=== PATIENT | female | born 1970 | race Two or more races ===

== ENCOUNTER 2016-07-15 21:31 | Inpatient (IN) | payer OTHER ==
--- NOTE | 2016-07-15 21:40 | EDPHY ---
H & P Stated Complaint: SOB and CP since 1700 - Personal History LMP (Females 10-55): Hysterectomy Current Tetanus/Diphtheria Vaccine: Unsure Current Tetanus Diphtheria and Acellular Pertussis (TDAP): Unsure - Medical/Surgical History Hx Asthma: Yes Hx Chronic Respiratory Disease: No Hx Diabetes: No Hx Cardiac Disease: No Hx Renal Disease: No Hx Cirrhosis: No Hx Alcoholism: No Hx HIV/AIDS: No Hx Splenectomy or Spleen Trauma: No Other PMH: C-SECT X3, BREAST CA 10/2013- DOUBLE MASTECTOMY/RECONSTRUCT, KIDNEY STONE WITH SURG - Social History Smoking Status: Never smoked Time Seen by Provider: 07/15/16 21:40 Constitutional: Initial Vital Signs Temperature (C) 36.8 C 07/15/16 21:33 Heart Rate 122 H 07/15/16 21:33 Respiratory Rate 26 H 07/15/16 21:33 Blood Pressure 191/92 H 07/15/16 21:33 O2 Sat (%) 92 07/15/16 21:33 O2 Delivery Mode Nasal Cannula O2 (L/minute) 2 Allergies/Adverse Reactions: hydrocodone bitartrate [From Vicodin] Allergy (Verified 07/15/16 21:37) Other-Enter Comments Sulfa (Sulfonamide Antibiotics) Allergy (Verified 07/15/16 21:37) Swelling/neck,face,throat Home Medications: Medication Instructions Recorded Albuterol [Proventil Inhaler HFA 2 puffs IH Q4 PRN 08/31/15 (*)] Fluticasone Nasal [Flonase Nasal 2 sprays NASAL HS PRN 08/31/15 Barto] Letrozole [Femara 2.5 mg (*)] 2.5 mg PO DAILY@2030 04/16/16 Acetaminophen [Tylenol 325mg (*)] 650 mg PO Q4HRS PRN #0 tab 07/17/16 guaiFENesin [Mucinex 600 MG (*)] 1,200 mg PO BID 7 Days 07/17/16 predniSONE 20 mg PO DAILY #14 tablet 07/17/16 Medical Decision Making ED Course/Re-evaluation: CHIEF COMPLAINT: Dyspnea HISTORY OF PRESENT ILLNESS: This patient is a 45 year old female with a history of metastatic breast cancer who was referred to the Emergency Department by her oncologist, Dr. Roe, for acute shortness of breath beginning at 1700 today. She also reports associated cough and diffuse anterior chest pain exacerbated when attempting to breath deeply. She denies fever or chills or additional infectious symptoms. REVIEW OF SYSTEMS: A 10 point review of systems was performed and is negative with the exception of the elements mentioned in the history of present illness. PHYSICAL EXAM: HR, BP, O2 Sat, RR. Temp noted General Appearance: Alert, well hydrated, appropriate, and non-toxic appearing. Head: Atraumatic without scalp tenderness or obvious injury Eyes: Pupils equal, round, reactive to light and accommodation, EOMI, no trauma , no injection. Ears: Clear bilaterally, no perforation, normal landmarks Nose: Atraumatic, no rhinorrhea, clear. Throat: There is no erythema or exudates, no lesions, normal tonsils, mucus membranes moist. Neck: Supple, 2+ carotid upstroke, nontender, no lymphadenopathy. Respiratory: No retractions, no distress, no wheezes, and no accessory muscle use. Lungs are clear to auscultation bilaterally. Cardiovascular: Regular rate and rhythm, no murmurs, rubs, or gallops. Bilateral carotid, radial, dorsalis pedis, and posterior tibial pulses intact. Good capillary refill all extremities. Gastrointestinal: Abdomen is soft, nontender, non-distended, no masses, no rebound, no guarding, no peritoneal signs. Musculoskeletal: Normal active ROM of all extremities, atraumatic. Neurological: Alert, appropriate, and interactive. The patient has normal DTRs and non-focal cranial nerves, motor, sensory, and cerebellar exam. Skin: No rashes, good turgor, no nodules on palpation. Past medical history: Metastatic breast cancer, in radiation therapy. Past surgical history: Hysterectomy. Social history: Single, lives in [place]. DIAGNOSTICS/PROCEDURES/CRITICAL CARE TIME: Study: CTA of the chest Indication: Dyspnea Results: CT angiogram of the chest was obtained. The results of the study are: The study was read by the radiologist, . I viewed the images myself on the PACS system. DIFFERENTIAL DIAGNOSIS: The differential diagnosis for the patient's shortness of breath and hypoxemia included but was not limited to pneumonia, myocardial infarction, acute mountain sickness, high altitude pulmonary edema, congestive heart failure, and pulmonary embolus. MEDICAL DECISION MAKING: This 45 y/o female with metastatic breast cancer presents with symptoms of possible radiation pneumonitis or pulmonary emboli. She complains of dyspnea and associated chest pain. On exam, she is tachycardic and has difficulty breathing deeply or speaking in full sentences. IV established. 500mL IV NS, 1mg IV Dilaudid, and 3mL IH DuoNeb administered. Will proceed with CT angiogram of the chest. (Justin Hardy) 1216: CT scan of the angiogram chest with IV contrast The results of the study are negative for pulmonary embolism, there is radiation pneumonitis seen. This also a left thyroid nodule. There is also a small pericardial effusion that is new since the last study. The study was read by Dr. Garcia I viewed the images myself on the PACS system. 0026: EKG interpretation by me on record in [facility] system. Impression time of EKG at 12:24 a.m., this is sinus tachycardia rate of 124. Do not appreciate ST elevation.. 1240: This patient was signed over to me at 11:00 p.m. shift change. Follow up the CT angiogram. I have been watching this patient closely she has persistent tachycardia in the 130s. Her CT angiogram does not show a pulmonary embolism most likely cause of pleuritic pain is radiation pneumonitis however she does have a very small pericardial effusion on CT scan with some fibrin is changes. This may be causing her pleurisy. Due to her persistent tachycardia and new small pericardial effusion and ongoing chest discomfort I have admitted her to the hospital service PCU bed for closer observation serial enzymes and an echocardiogram. I spoke with the hospitalist service Dr. Bean who agrees to admit this patient (Robin Pedraza) - Data Points Laboratory Results: Laboratory Results 07/16/16 06:40 07/16/16 06:40 Medications Given: Discontinued Medications Acetaminophen (Tylenol) 650 mg PO Q4HRS PRN PRN Reason: Pain, Mild/Fever, Can Take PO Stop: 01/12/17 02:47 Last Admin: 07/16/16 22:47 Dose: 650 mg Albuterol/Ipratropium (Duoneb) 3 ml IH EDNOW ONE Stop: 07/15/16 21:46 Last Admin: 07/15/16 23:18 Dose: 3 ml Albuterol/Ipratropium (Duoneb) 3 ml IH QID BRYANT Stop: 01/12/17 05:59 Last Admin: 07/17/16 10:58 Dose: 3 ml Docusate Sodium (Colace) 100 mg PO BID [facility] Stop: 01/12/17 12:29 Last Admin: 07/17/16 08:54 Dose: 100 mg Enoxaparin Sodium (Lovenox) 40 mg SC DAILY [facility] Stop: 01/12/17 08:59 Last Admin: 07/17/16 08:44 Dose: 40 mg Guaifenesin (Mucinex) 1,200 mg PO BID [facility] Stop: 01/12/17 02:59 Last Admin: 07/17/16 10:35 Dose: Not Given Hydromorphone HCl (Dilaudid) 1 mg IVP EDNOW ONE Stop: 07/15/16 21:47 Last Admin: 07/15/16 23:31 Dose: 1 mg Hydromorphone HCl (Dilaudid) 1 mg IVP EDNOW ONE Stop: 07/16/16 00:39 Last Admin: 07/16/16 00:57 Dose: 1 mg Sodium Chloride (Ns) 500 mls @ 0 mls/hr IV ONCE ONE PRN Reason: As Directed Stop: 07/15/16 21:46 Last Admin: 07/15/16 23:31 Dose: 500 mls Sodium Chloride (Ns) 500 mls @ 0 mls/hr IV EDNOW ONE PRN Reason: Wide Open Stop: 07/15/16 23:34 Last Admin: 07/15/16 23:34 Dose: 500 mls Sodium Chloride (Ns) 1,000 mls @ 0 mls/hr IV EDNOW ONE PRN Reason: Wide Open Stop: 07/16/16 00:31 Last Admin: 07/16/16 00:30 Dose: 1,000 mls Ketorolac Tromethamine (Toradol) 30 mg IVP EDNOW ONE Stop: 07/15/16 23:33 Last Admin: 07/15/16 23:34 Dose: 30 mg Letrozole (Femara) 2.5 mg PO DAILY@2029 [facility] Stop: 01/12/17 20:29 Last Admin: 07/16/16 20:19 Dose: 2.5 mg Ondansetron HCl (Zofran) 4 mg IVP Q4HRS PRN PRN Reason: Nausea/Vomiting, Can't Take PO Stop: 01/12/17 02:47 Last Admin: 07/16/16 10:47 Dose: 4 mg Oxycodone HCl (Oxycodone Ir) 5 - 10 mg PO Q3HRS PRN PRN Reason: Pain, Severe Able to Take PO Stop: 07/26/16 02:47 Last Admin: 07/16/16 15:15 Dose: 10 mg Prednisone (Prednisone) 60 mg PO DAILY [facility] Stop: 01/12/17 08:59 Last Admin: 07/17/16 08:54 Dose: 60 mg Departure - Departure Disposition: [facility] Inpatient Acute Clinical Impression: Tachycardia Chest pain Qualifiers: Chest pain type: chest pain on breathing Qualifier Code: (R07.1) Chest pain on breathing Condition: Fair
[2016-07-15] MEDS ORDERED: NS 500 ML IV ONE ×2 (21:45→23:33)
[2016-07-15] MEDS ORDERED: IPRATROPIUM/ALBUTEROL 3 ML DEYVIAL IH ONE (21:45)
[2016-07-15] MEDS ORDERED: HYDROmorphONE/DILAUDID 1 MG/ML SYR ONE (21:46)
[2016-07-15] MEDS ORDERED: HYDROmorphONE/DILAUDID 1 MG/ML SYR IVP ONE (21:46)
[2016-07-15] MEDS ORDERED: KETOROLAC 30 MG/1 ML SDV ONE (21:46)
[2016-07-15] MEDS ORDERED: IOPAMIDOL (ISOVUE 370) 100 ML BTL IV ONE (21:52)
[2016-07-15 22:42] LABS: % IMMATURE GRANULYOCYTES 0.6 % (0.0-1.1); ABSOLUTE IMMATURE GRANULOCYTES 0.07 10^3/uL (0.00-0.10); ADD DIFF? NO; ADD MORPH? NO; ADD SCAN? NO; ATYPICAL LYMPHOCYTE FLAG 0 (0-99); FRAGMENT RBC FLAG 0 (0-99); HEMATOCRIT 43.5 % (38.0-47.0); HEMOGLOBIN 14.7 g/dL (12.6-16.3); LEFT SHIFT FLG 0 (0-99); LIPEMIA HEMOLYSIS FLAG 90 (0-99); MEAN CELL HEMOGLOBIN 30.4 pg (27.9-34.1); MEAN CELL HEMOGLOBIN CONCENTR. 33.8 g/dL (32.4-36.7); MEAN CELL VOLUME 89.9 fL (81.5-99.8); MEAN PLATELET VOLUME 9.6 fL (8.7-11.7); PLATELET CLUMPS FLAG 20 (0-99); PLATELET COUNT 262 10^3/uL (150-400); RED BLOOD CELL COUNT 4.84 10^6/uL (4.18-5.33); RED CELL DISTRIBUTION WIDTH 14.8 % (11.5-15.2)
[2016-07-15 22:54] LABS: ANION GAP 12 mEq/L (8-16); CALCIUM 9.4 mg/dL (8.5-10.4); CARBON DIOXIDE 22 mEq/l (22-31); CHLORIDE 112 mEq/L (97-110); CREATININE 0.7 mg/dL (0.6-1.0); GLOMERULAR FILTRATION RATE > 60; GLUCOSE 155 mg/dL (70-100); SODIUM 146 mEq/L (134-144)
[2016-07-15] MEDS ORDERED: KETOROLAC 30 MG/1 ML SDV IVP ONE (23:32)
[2016-07-16] MEDS ORDERED: NS 1,000 ML IV ONE (00:30)
[2016-07-16] MEDS ORDERED: HYDROmorphONE/DILAUDID 1 MG/ML SYR IVP ONE (00:38)
--- NOTE | 2016-07-16 00:50 | CPEKG ---
Heart Rate: 124 RR Interval: 484 P-R Interval: 132 QRSD Interval: 80 QT Interval: 324 QTC Interval: 466 P Milton: 41 QRS Milton: 28 T Wave Milton: 61 EKG Severity - BORDERLINE ECG - EKG Impression: SINUS TACHYCARDIA EKG Impression: BORDERLINE R WAVE PROGRESSION, ANTERIOR LEADS Electronically Signed By: Michael Villarreal 17-Jul-2016 22:20:32
[2016-07-16] MEDS ORDERED: LORazepam 2 MG/ML INJ IVP PRN (02:48)
[2016-07-16] MEDS ORDERED: PROMETHAZINE HCL 25 MG/ML INJ IVP PRN (02:48)
[2016-07-16] MEDS ORDERED: HYDROmorphONE/DILAUDID 1 MG/ML SYR IVP PRN (02:48)
[2016-07-16] MEDS ORDERED: ONDANSETRON DISINTEGRATING 4 MG TAB PO PRN (02:48)
[2016-07-16] MEDS ORDERED: ALBUTEROL 3 ML DEYVIAL IH PRN (02:48)
[2016-07-16] MEDS: guaiFENesin 600 MG TAB.ER PO SCH ×3 (03:26→20:19)
[2016-07-16] MEDS: oxyCODONE IR 5 MG TAB PO PRN ×2 (03:26→15:15)
[2016-07-16] MEDS: ACETAMINOPHEN 325 MG TAB PO PRN ×2 (04:19→22:47)
[2016-07-16] MEDS: IPRATROPIUM/ALBUTEROL 3 ML DEYVIAL IH SCH ×4 (06:16→19:27)
[2016-07-16] MEDS: ONDANSETRON 4 MG/2 ML VIAL IVP PRN ×2 (06:45→10:47)
[2016-07-16 06:52] LABS: % IMMATURE GRANULYOCYTES 0.6 % (0.0-1.1); ABSOLUTE IMMATURE GRANULOCYTES 0.08 10^3/uL (0.00-0.10); ADD DIFF? NO; ADD MORPH? NO; ADD SCAN? NO; ATYPICAL LYMPHOCYTE FLAG 10 (0-99); FRAGMENT RBC FLAG 0 (0-99); HEMOGLOBIN 12.6 g/dL (12.6-16.3); LEFT SHIFT FLG 10 (0-99); LIPEMIA HEMOLYSIS FLAG 90 (0-99); MEAN CELL HEMOGLOBIN 30.6 pg (27.9-34.1); MEAN CELL HEMOGLOBIN CONCENTR. 34.1 g/dL (32.4-36.7); MEAN CELL VOLUME 89.8 fL (81.5-99.8); MEAN PLATELET VOLUME 9.7 fL (8.7-11.7); PLATELET CLUMPS FLAG 0 (0-99); PLATELET COUNT 255 10^3/uL (150-400); RED BLOOD CELL COUNT 4.12 10^6/uL (4.18-5.33)
[2016-07-16 07:27] LABS: ANION GAP 13 mEq/L (8-16); CARBON DIOXIDE 20 mEq/l (22-31); CHLORIDE 111 mEq/L (97-110); CREATININE 0.6 mg/dL (0.6-1.0); GLOMERULAR FILTRATION RATE > 60; GLUCOSE 113 mg/dL (70-100); SODIUM 144 mEq/L (134-144)
[2016-07-16 07:39] LABS: TROPONIN I < 0.012 ng/mL (0-0.034)
--- NOTE | 2016-07-16 07:49 | GHP ---
[f rep st] HISTORY AND PHYSICAL DATE OF ADMISSION: 07/16/2016 CHIEF COMPLAINT: Chest pain and shortness of breath. HISTORY: This is a full code 45-year-old female with a past medical history of breast cancer status post double mastectomy, currently undergoing chest radiation who presents with chest pain and shortne ss of breath that has been worsening over the course of the day today. She does have a nonproductive cough as well. She denies fevers or chills. She notes that the pain is worse with deep inspiration . She has not had similar symptoms in the past. She was warned by her oncologist that she may have these type symptoms develop possibly related to radiation pneumonitis. She does not have swelling or pain in her lower extremities. She has never had similar issues in the past. PAST MEDICAL HISTORY: 1. Includes breast cancer. 2. Multiple bouts of nephrolithiasis. PAST SURGICAL HISTORY: 1. Includes bilateral mastectomy. 2. Hysterectomy. 3. x3. 4. Two kidney stone surgeries. FAMILY HISTORY: She has 2 aunts with breast cancer. Father with heart disease. Multiple family mem bers with early onset heart disease including a grandmother who at age 50 of an MN. Mother has had DVTs. SOCIAL HISTORY: The patient works at [employer] in [place] [employer]. She has a remote and brief tobacco use history. She denies alcohol. She does use medical marijuana occasionally. REVIEW OF SYSTEMS: A 10-point review of systems obtained and negative, except as per HPI. MEDICATIONS: Include: 1. Letrozole. 2. . 3. Flonase. 4. Azithromycin. 5. Albuterol. ALLERGIES: Include sulfa. PHYSICAL EXAM: VITAL SIGNS: BP 131/88, heart rate 116, respiratory rate 20, O2 sat is 98% on 2 L. Temperature is 36.8. GENERAL APPEARANCE: Well-developed/well-nourished female. She is awake, alert . She is in no acute distress. EYES: Anicteric. HENT: Oropharynx clear. CARDIOVASCULAR: Mildly tachy, regular, no MRG. PULMONARY: Lungs are clear, she does have some bronchial breath sounds pre sent and a nonproductive cough. Normal work of breathing. ABDOMEN: Soft, nontender. Positive rama l sounds. EXTREMITIES: No clubbing, cyanosis, or edema. SKIN: Warm, dry, well perfused. NEURO/PS YCH: Oriented and appropriate, pleasant. CLINICAL DATA: Labs reviewed. Significant for a white blood cell count of 13.3, hematocrit of 37, p latelets of 255. Chemistry is remarkable for a glucose of 155. Troponin is negative. EKG personall y reviewed and interpreted, shows sinus tachycardia without acute ischemic changes. Chest and thorax CT angiogram personally reviewed interpreted showing no PE. There was evidence of r adiation pneumonitis as well as pericardial effusion. ASSESSMENT AND PLAN: This is a 45-year-old female, past medical history of breast cancer currently u ndergoing chest radiation, presenting with shortness of breath and chest pain. 1. Shortness of breath/chest pain. Suspect that this is related to radiation pneumonitis, however, she does have also an associated small pericardial effusion with fibrinous changes and for that reaso n echocardiogram has been ordered for this morning. Serial troponins and telemetry monitoring overni ght. Her symptoms do seem to be improving at this time. Will start prednisone and continue bronchod ilators. 2. Breast cancer. As per above, currently undergoing radiation therapy. We will continue her usual home medications. 3. Hyperglycemia. Suspect that this is a stress response but will repeat BMP in the morning and if still elevated, obtain hemoglobin A1c. 4. Tachycardia. This is improved post fluid resuscitation. Suspect it was related to volume deplet ion. Again, will continue to monitor on telemetry. 5. Disposition. Observation status. Suspect she will need less than 48 hours stay for evaluation a nd management of above. 6. Patient is new to my care. Old records reviewed and summarized as per HPI and past medical histo ry. Care plan reviewed with ER physician, and further history obtained from patient's daughter desmond vázquez at bedside. /[id number]/MODL
--- NOTE | 2016-07-16 08:59 | CT ---
CT Angiogram of the Chest Clinical Indications: Chest pain. Technique: 1.25-mm thin axial images are performed from lung apex through base during intravenous con trast injection of 90 mL of Isovue-370. Coronal and parasagittal reformatted images are reviewed on [employer] workstation. Dose reduction techniques were utilized. Comparison: None. Findings CT angiogram of the chest: There is no evidence for acute or chronic pulmonary embolic disease. Centr al pulmonary vasculature demonstrates normal contrast enhancement. No masses. CT scan chest: Postradiation pneumonitis is seen with central bronchiectasis. There is a rind of sma ll pericardial effusion 1 cm in depth circumferentially that is new. Heart size is otherwise normal. There is significant fatty replacement of the liver, unchanged. Implants are unchanged. Bones and sof t tissues are stable. A large left thyroid nodule measures 2.7 x 3.4 cm and was previously not imaged. Impression: 1. No pulmonary embolism. 2. Postradiation pneumonitis, known. 3. New circumferential pericardial effusion, largest measuring 1 cm, unclear significance. 4. Fatty replacement of the liver, unchanged. 5. Dominant solitary left 2.7 x 3.4 cm thyroid nodule, previously not imaged. Findings were discussed with Dr. Robin Munoz.
[2016-07-16] MEDS: predniSONE 20 MG TAB PO SCH (10:13)
[2016-07-16] MEDS: ENOXAPARIN 40 MG/0.4 ML SYR SC SCH (10:14)
--- NOTE | 2016-07-16 11:38 | ECHO ---
[id number] + + [address] : : [place] [address] : : [phone] + Adult Echocardiographic Report + -----+ :Name: BERTA AQUINO LStudy Date: 07/16/2016 08:17 AM : : Hospital Admission Number: [id number] Location : 205: :: 1970 Gender: Female Height: 57 in : :Age: 45 yrs Race: [facility] Weight: 207 lb : :Reason For Study: Pericardial effusion (by CT) : : BSA: 1.8 meters2 : :History: Breast CA/implants : + -----+ MMode/2D Measurements & Calculations IVSd: 1.5 cm LVIDd: 3.9 cm FS: 37.5 % Ao root diam: 3.0 cm LVPWd: 1.2 cm LVIDs: 2.4 cm EDV(Teich): 65.0 ml ESV(Teich): 20.7 ml EF(Teich): 68.2 % Normal Measurement Values: + + :LVIDd (3.5-5.7cm) IVSd (0.6-1.1cm) LVPWd (0.6-1.1cm) Aortic Root (2.0-3.7cm)Left Atrium (1.5-4.0cm): :LV Vol(d) (76-115ml) LV Vol(s) (29-48ml) Ejec Fraction (50-65%)PV Marlon (0.6- 1.2m/s) TV Marlon (0.4-1.0m/s) : :MV E Marlon (0.8-1.0m/s)MV A Marlon (0.3-1.0m/s)LVOT Marlon (0.7-1.2m/s) Asc Ao Marlon ( 0.9-1.8m/s) : + + Doppler Measurements & Calculations MV E max marlon: 86.9 cm/sec Ao V2 max: 149.3 cm/sec MV A max marlon: 89.8 cm/sec Ao max P.9 mmHg MV E/A: 0.97 Left Ventricle The left ventricle is normal in size. There is mild to moderate concentric left ventricular hypertrophy. The left ventricle is hyperdynamic. Ejection Fraction = 70-75%. The left ventricular wall motion is normal. Right Ventricle The right ventricle is normal size. Atria The left atrial size is normal. Right atrial size is normal. Mitral Valve The mitral valve is normal. Tricuspid Valve Normal tricuspid valve. Aortic Valve The aortic valve opens well. The aortic valve is trileaflet. Mild aortic regurgitation. Pulmonic Valve The pulmonic valve is not well visualized. trace to mild pulmonic valvular regurgitation. Great Vessels The aortic root is normal size. Pericardium/Pleural Trivial anterior pericardial effusion. Conclusion A complete two-dimensional transthoracic echocardiogram was performed (2D, M-mode, Doppler and color flow Doppler). Limited views for visualization with implants. (1) Left ventricular systolic ejection fraction was normal (70-75%) - normal wall motion (2) Mild to moderate concentric left ventricular hypertrophy (3) Diastolic function was not clearly assessed in this study (4) Normal right ventricular size and function (5) Normal atrial dimensions (6) Grossly normal mitral valve (7) Trileaflet aortic valve with mild insufficiency, but no sclerosis (8) Grossly normal tricuspid valve (9) Poor visualization of the pulmonic valve with trace/mild insufficiency (10) No comparison echocardiograms Final Reading Physician: Alvin Pride signed on 07/16/2016 11:36 AM Ordering Physician: Stephanie Kraft Performed By: Yancy Garcia, TYRELL
--- NOTE | 2016-07-16 13:06 | HOSPPROG ---
Hospitalist Progress Note Assessment/Plan: # acute chest pain- suspect secondary to radiation pneumonitis CTA of the chest (personally reviewed and interpreted) no pulmonary embolism or infiltrate radiation pneumonitis troponin and EKG negative- oxygen saturations 98% on 2 L - transthoracic echo ordered - continue treatment for radiation pneumonitis as symptoms have improved # acute nausea and headache- symptoms seem severe - ordered non con CT of head is patient additionally with gait instability - continue Zofran # sinus tachycardia- heart rates in the 120 on presentation- responded nicely to fluids overnight- creatinine 0.6 - continue IV fluid maintenance as patient has nausea - continue telemetry # breast cancer- actively receiving treatment # prophylaxis Lovenox # diet regular if tolerated # disposition greater than 2 midnights as the patient still with severe nausea headache and gait instability requiring diagnostic workup and treatment I have discussed the case with the RN we will image the patient's headache and nausea markedly more severe Subjective: nausea severe terrible headache Objective: Vital Signs Temp Pulse Resp BP Pulse Ox 36.9 C 97 20 120/79 98 07/16/16 11:52 07/16/16 11:52 07/16/16 11:52 07/16/16 11:52 07/16/16 11:52 Laboratory Results 07/16/16 06:40 07/16/16 06:40 07/15/16 07/16/16 07/17/16 05:59 05:59 05:59 Intake Total 2250 240 Balance 2250 240 - Physical Exam Constitutional: appears nourished Eyes: anicteric sclera Ears, Nose, Mouth, Throat: dry mucous membranes Cardiovascular: regular rate and rhythym Respiratory: no respiratory distress, no rales or rhonchi Gastrointestinal: normoactive bowel sounds, soft, non-tender abdomen Genitourinary: no bladder fullness Skin: warm, normal color Musculoskeletal: No asymmetric calves Neurologic: AAOx3 Psychiatric: interacting appropriately Lymph, Heme, Immunologic: no cervical LAD ICD10 Worksheet Patient Problems: Problems Problem Status Diagnosed Chest pain Acute Left nephrolithiasis Acute Tachycardia Acute
[2016-07-16] MEDS: DOCUSATE SODIUM 100 MG CAP PO SCH ×2 (13:19→20:18)
--- NOTE | 2016-07-16 15:07 | CT ---
CT Head Without Contrast History: Headache with nausea and gait instability, history of breast cancer Comparison: None. Technique: Noncontrast images through the head. Soft tissue and bone window evaluation is performed. Dose reduction techniques were utilized. Findings: There is no evidence for hemorrhage, mass lesion, acute infarction, intracranial edema, hyd rocephalus or abnormal intracranial parenchymal calcification. There is benign midline dural calcific ation. No subarachnoid blood is identified. There is no midline shift. The ambient cistern is patent. Bone window evaluation reveals normally aerated paranasal and mastoid sinuses. No lytic or sclerotic bone lesions are identified to suggest bony metastatic disease. There is no evidence of pneumocephal us. Impression: Head CT within normal limits. General information for patients regarding this examination can be found at [email or web address]. If you have questions or comments about this report, please contact me at [phone] (hospital) or [phone] (cell).
[2016-07-16] MEDS ORDERED: FLUTICASONE NASAL 120 SPRAYS/16 GM MDI NS PRN (16:10)
[2016-07-16] MEDS ORDERED: ALBUTEROL 60 PUFFS/8 GM MDI IH PRN (16:10)
[2016-07-16] MEDS ORDERED: LETROZOLE 2.5 MG TAB PO SCH (20:30)
--- NOTE | 2016-07-16 20:54 | GCON ---
[f rep st] CONSULTATION MEDICAL ONCOLOGY CONSULTATION DATE OF CONSULTATION: 07/16/2016 REASON FOR CONSULTATION: Chest pain and shortness of breath. HISTORY OF PRESENT ILLNESS: The patient is a very pleasant 45-year-old female who was admitted last evening with symptoms of pleuritic chest pain and dyspnea. Her oncology history dates back to September 2013 when she presented with a stage IIA right breast cancer. The tumor was ER/OR positive and HER2- negative. She underwent bilateral mastectomies followed by 4 cycles of adjuvant Taxotere and Cytoxan. She did not receive post-mastectomy radiation therapy and then was started on tamoxifen. In November of 2015, she noted a lump in the lateral aspect of the right reconstructive breast. Biopsy showed a grade 2 ER/OR positive, HER2-negative invasive ductal carcinoma with a high Ki- 67. PET scan at that time showed a large tumor in the sternum with a multinodular goiter and bilateral lower cervical nodes. She was started on Lupron and letrozole in September of 2015 and underwent a course of palliative radiation therapy in February to the sternum. She had a significant response in the sternum with decrease in size of the sternal mass, but the axillary nodes were the same size. She underwent removal of the axillary mass in May and just started on radiation therapy to the right axilla about one week ago. She was feeling in her usual state of health until yesterday afternoon after coming out of the Radiation Department. She noted that she had pain when she was breathing. She felt short of breath. She denies any fever. She denies sore throat. She developed progressive symptoms of dyspnea with pleuritic pain and presented to the emergency room last evening. A CT angiogram did not show any evidence of pulmonary emboli, but there was evidence of postradiation pneumonitis centrally. There was a small pericardial effusion. No other abnormalities were identified other than the thyroid nodule. The cardiac evaluation has been negative with negative troponins and unremarkable EKG. An echocardiogram is pending. The patient was treated for probable radiation pneumonitis and given NSAIDs along with prednisone. She feels much less pain this morning. However, was nauseated and had emesis throughout the night, along with a headache. She thinks these may be related to the pain medications that she got last night. Overall, she does feel improved. PAST MEDICAL HISTORY: Breast cancer as per HPI. PAST SURGICAL HISTORY: Bilateral mastectomy. 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 She is accompanied today with her daughter. She does not smoke cigarettes. REVIEW OF SYSTEMS: A 10-point review of systems is negative, other than mentioned in the HPI. PHYSICAL EXAMINATION: GENERAL: She is a young female lying comfortably in bed with oxygen on. VITAL SIGNS: Blood pressure 120/79, heart rate 97, O2 saturation 98% on 2 L, she is afebrile. HEENT: Pupils are equal. Sclerae are anicteric. Oropharynx is clear without evidence of thrush. LUNGS: Clear to auscultation, but she does describe some discomfort when she takes a deep breath in across her upper chest. HEART: Regular rate. I do not hear a rub. ABDOMEN: Soft and nontender. LABORATORY DATA: White blood cell count 13.4, hematocrit 37. Metabolic panel is unremarkable. IMPRESSION: This is a 45-year-old female with metastatic breast cancer with disease primarily in bone and lymph nodes. She completed a course of radiation to the sternum in February and the radiographic findings on CT scan correlate with what I presume are her sternal radiation murray. She is currently five days into right axillary radiation. She is more comfortable this morning after treatment with steroids and NSAIDs. This may represent radiation pneumonitis occurring in a delayed fashion, but unclear if there was a trigger. She has respond clinically. The nausea and headache are likely due to the pain medicines and the head CT was negative. PLAN: I have asked the patient to contact the Radiation Department first thing Monday morning. I will notify Dr. Lamas and we can get his opinion on her symptomatology as well. Will continue to follow along with you. /[id number]/MODL MTDD
[2016-07-17] MEDS: IPRATROPIUM/ALBUTEROL 3 ML DEYVIAL IH SCH ×2 (06:41→10:58)
[2016-07-17 08:23] VITALS: BP 135/76; PULSE 86; TEMP 97.5; O2SAT 95
[2016-07-17] MEDS: ENOXAPARIN 40 MG/0.4 ML SYR SC SCH (08:44)
[2016-07-17] MEDS: predniSONE 20 MG TAB PO SCH (08:54)
[2016-07-17] MEDS: DOCUSATE SODIUM 100 MG CAP PO SCH (08:54)
[2016-07-17] MEDS: guaiFENesin 600 MG TAB.ER PO SCH (10:35)
[2016-07-17 11:03] VITALS: RESP 16
--- NOTE | 2016-07-17 11:42 | GDS ---
[f rep st] DISCHARGE SUMMARY NEW AND ACUTE DIAGNOSES ON THIS ADMISSION: 1. Acute radiation pneumonitis with chest pain, chest pain now resolved. 2. Chest pain secondary to #1, now controlled with antiinflammatories, prednisone, and Tylenol. 3. Dehydration, resolved. 4. Metastatic breast carcinoma, currently under treatment. CONSULTATION: Oncology. PROCEDURES: CTA of the chest and thorax showing no evidence of a pulmonary embolus, but evidence of pneumonitis. Head CT was normal. HOSPITAL COURSE: A 45-year-old female, presented with a complaint of chest pain. She is currently under undergoing radiation therapy for metastatic breast carcinoma. Evaluation revealed findings of acute pneumonitis, presumed secondary to radiation. No evidence of pulmonary embolus was found. She was started on antiinflammatories and prednisone, and had good resolution of her pain. Mild dehydration was present on admission and was treated with IV fluids. The dehydration was secondary to nausea and vomiting. She also had a complaint of a headache. The headache, nausea, and vomiting all resolved at the time of discharge, and she was feeling well, taking a normal diet. DISCHARGE MEDICATIONS: Prednisone 20 mg per day, Mucinex 1200 mg p.o. b.i.d., Proventil inhaler 2 puffs q.4 hours p.r.n. shortness of breath, Tylenol p.r.n. for pain, Femara 2.5 mg daily, Flonase nasal spray 2 inhalations in each nose b.i.d. PLAN: She will follow up with Dr. White within the next 7 days. She is also to see Radiation Oncology, Dr. Francisco Lamas, in 1-2 days. /[id number]/MODL MTDD
== END 2016-07-17 11:38 | disposition home or self-care (01) | DRG 206 ==
LOC: INTOOBSV 07-16 00:39 → F2W 07-16 01:31 → OBSVTOIN 07-16 13:10
PROVIDERS: ADMIT Internal Medicine; ATTEND Internal Medicine Pulmonary Disease
DX: J70.0 Acute pulmonary manifestations due to radiation (principal); Y84.2 Radiological procedure and radiotherapy as the cause of abnormal reaction of the patient, or of later complication, without mention of misadventure at the time of the procedure; E86.0 Dehydration; R11.2 Nausea with vomiting, unspecified; R51 Headache; C77.3 Secondary and unspecified malignant neoplasm of axilla and upper limb lymph nodes; C79.51 Secondary malignant neoplasm of bone; Z85.3 Personal history of malignant neoplasm of breast; Z90.13 Acquired absence of bilateral breasts and nipples
CPT/HCPCS: 96374; J1170; J1650; J1885; J2405; Q9967

== ENCOUNTER → 2016-09-06 | Outpatient (CLI) | payer OTHER | LOC: FIMAGING 07:55 | PROVIDERS: ATTEND Internal Medicine Hematology & Oncology | DX: Z51.81 Encounter for therapeutic drug level monitoring (principal); R93.8 Abnormal findings on diagnostic imaging of other specified body structures; C50.919 Malignant neoplasm of unspecified site of unspecified female breast | CPT/HCPCS: A9503 ==

== ENCOUNTER → 2016-12-22 | Outpatient (CLI) | payer OTHER | LOC: FIMAGING 09:17 | PROVIDERS: ATTEND Internal Medicine Hematology & Oncology | DX: C50.919 Malignant neoplasm of unspecified site of unspecified female breast (principal); R10.9 Unspecified abdominal pain; N13.30 Unspecified hydronephrosis; C79.51 Secondary malignant neoplasm of bone; Z87.442 Personal history of urinary calculi | CPT/HCPCS: 78306; A9503 ==

== ENCOUNTER → 2017-01-25 | Outpatient (CLI) | payer OTHER ==
[~2017-01-25] MED LIST: IOPAMIDOL (ISOVUE-M 300) 15 ML VIAL ONE
== END ==
LOC: FIMAGING 08:26
PROVIDERS: ATTEND Internal Medicine Hematology & Oncology
PROC: CP1Z1ZZ Planar Nuclear Medicine Imaging of Musculoskeletal System, All using Technetium 99m (Tc-99m) (ICD-10-PCS; principal; 2017-01-25)
DX: C79.51 Secondary malignant neoplasm of bone (principal); C50.919 Malignant neoplasm of unspecified site of unspecified female breast; N13.2 Hydronephrosis with renal and ureteral calculous obstruction
CPT/HCPCS: 78306; A9503; Q9967

== ENCOUNTER 2017-01-27 09:58 | Day surgery (SDC) | payer OTHER ==
--- NOTE | 2017-01-26 11:28 | GHP ---
[f rep st] PREOP HISTORY AND PHYSICAL DATE OF ADMISSION: 01/27/2017 PREPROCEDURE DIAGNOSIS: Metastatic breast cancer. HISTORY OF PRESENT ILLNESS: Shannon is a 46-year-old woman with metastatic breast cancer who presented to the office to discuss port placement. Her oncologist is Dr. Tomas White. Her most recent CT in December 2016 showed progressive disease and a number of mediastinal lymph nodes as well as a new james er lesion. She is scheduled to begin chemotherapy as soon as the port is placed. She is having a k idney stone removed by Dr. Harris on 01/27/2017, and it has been discussed that the case can be perfo rmed [id number]. PAST MEDICAL HISTORY: GERD, kidney stones, breast cancer, obesity. PAST SURGICAL HISTORY: Bilateral mastectomies with reconstructions. section. Kidney stone removal. ALLERGIES: Sulfa. FAMILY HISTORY: Significant for Alzheimer disease, coronary artery disease, stroke, hyperlipidemia and hypertension. SOCIAL HISTORY: She has a daughter. She denies tobacco, alcohol, recreational drug use. REVIEW OF SYSTEMS: A 10-point review of systems negative aside from HPI. PHYSICAL EXAMINATION: GENERAL: Well-developed, well-nourished, woman in no acute distress. HEENT: Normocephalic, atraumatic. No hearing deficits. Pupils equal and round. No scleral icterus. Mu cous membranes moist. NECK: Trachea midline. RESPIRATORY: Clear to auscultation bilaterally. No increased work of breathing. CARDIOVASCULAR: Regular rate and rhythm. No peripheral edema. SKIN : Warm and dry. MUSCULOSKELETAL: Normal gait. Normal nails. PSYCH: Mood and affect normal. NE URO: Grossly intact. IMPRESSION AND PLAN: Shannon Watsno is a 46-year-old woman with metastatic breast cancer. She will r equire a port for chemotherapy. We discussed benefits of port including easier access for IV. Disc ussed risks of surgery including, but not limited to, heart attack, stroke, blood clots or . W e discussed risk of infection, bleeding, or pneumothorax. She understands that if the port becomes infected, it will need to be removed. He will leave the port accessed following surgery for her sub sequent chemotherapy. We will place a left IJ PowerPort regular profile. She had her questions ans wered to her satisfaction. She was additionally seen by Dr. Dilia Martinez who agrees with the above i mpression and plan. /[id number]/MODL
[2017-01-27] MEDS ORDERED: ceFAZolin 2 GM/DEXTROSE 100 ML IV ONE (10:21)
[2017-01-27] MEDS ORDERED: LIDOCAINE 1% 2 ML INJ ID PRN (10:40)
[2017-01-27] MEDS ORDERED: LR 1,000 ML IV ONE (10:40)
[2017-01-27] MEDS ORDERED: BUPIVACAINE 0.5% 30 ML SDV ONE (11:44)
--- NOTE | 2017-01-27 11:53 | PDANEPAE ---
ANE History of Present Illness Metastatic breast ca and kidney stone ANE Past Medical History - Cardiovascular History Hx Hypertension: No Hx Arrhythmias: No Hx Chest Pain: No Hx Coronary Artery / Peripheral Vascular Disease: No Hx CHF / Valvular Disease: No Hx Palpitations: No - Pulmonary History Hx COPD: No Hx Asthma/Reactive Airway Disease: Yes Hx Recent Upper Respiratory Infection: No Hx Oxygen in Use at Home: No Hx Sleep Apnea: No Sleep Apnea Screening Result - Last Documented: Negative Pulmonary History Comment: ASTHMA - INHALER - Neurologic History Hx Cerebrovascular Accident: No Hx Seizures: No Hx Dementia: No - Endocrine History Hx Diabetes: No - Renal History Hx Renal Disorders: Yes Renal History Comment: KIDNEY STONES - Liver History Hx Hepatic Disorders: No - Neurological & Psychiatric Hx Hx Neurological and Psychiatric Disorders: No - Cancer History Hx Cancer: Yes Cancer History Comment: BREAST CA DX 2013, CHEMO. w/ Mets to Lungs - Congenital Disorder History Hx Congenital Disorders: No - GI History Hx Gastrointestinal Disorders: No - Other Health History Other Health History: ECZEMA - Chronic Pain History Chronic Pain: No - Surgical History Prior Surgeries: R axilla- excision mass - 2015;. CSECTION X 3. HYSTERECTOMY. LITHROTRIPSY. B MASTECTOMY 2013. BREAST RECONST SURG/IMPLANTS 2015. STONE REMOVAL 08/2015 & 10/2015 ANE Review of Systems - Exercise capacity METS (RN): 4 METS ANE Patient History - Allergies Allergies/Adverse Reactions: hydrocodone bitartrate [From Vicodin] Allergy (Verified 01/24/17 15:35) Other-Enter Comments Sulfa (Sulfonamide Antibiotics) Allergy (Verified 01/24/17 15:35) Swelling/neck,face,throat - Home Medications Home medications: home medication list seen and reviewed Home Medications: Albuterol [Proventil Inhaler HFA (*)] 2 puffs IH Q4 PRN 08/31/15 [Last Taken 16:00] Fluticasone Nasal [Flonase Nasal [place]] 2 sprays NASAL HS PRN 08/31/15 [Last Taken 01/26/17] Letrozole [Femara 2.5 mg (*)] 2.5 mg PO DAILY@2030 04/16/16 [Last Taken 12/28/16 ] - NPO status NPO Since - Liquids (Date): 01/27/17 NPO Since - Liquids (Time): 03:00 NPO Since - Solids (Date): 01/26/17 NPO Since - Solids (Time): 20:00 - Smoking Hx Smoking Status: Never smoked - Family Anes Hx Family Hx Anesthesia Complications: NEG ANE Labs/Vital Signs - Vital Signs Heart Rate: 63 Respiratory Rate: 17 O2 Sat (%): 93 Height: 152.4 cm Weight: 95.254 kg ANE Physical Exam - Airway Neck exam: FROM Mallampati Score: Class 3 Mouth exam: normal dental/mouth exam - Pulmonary Pulmonary: no respiratory distress - Cardiovascular Cardiovascular: regular rate and rhythym - ASA Status ASA Status: II ANE Anesthesia Plan Anesthesia Plan: GA w LMA
[2017-01-27] MEDS ORDERED: MIDAZOLAM 2 MG/2 ML VIAL IVP ONE (11:57)
[2017-01-27] MEDS ORDERED: PROPOFOL 200 MG/20 ML VIAL ONE ×2 (12:08→13:04)
[2017-01-27] MEDS ORDERED: fentaNYL 100 MCG/2 ML INJ ONE ×4 (12:08→16:02)
[2017-01-27] MEDS ORDERED: LIDOCAINE 2% 5 ML SDV ONE (12:08)
[2017-01-27] MEDS ORDERED: DEXAMETHASONE 4 MG/ML VIAL ONE (12:08)
--- NOTE | 2017-01-27 12:17 | PDHPUP ---
History & Physical Update H&P update statement: This history and physical update is based on an assessment of the patient which was completed after admission or registration (within 24 hours), but prior to the surgery/procedure. H&P update: H&P reviewed & patient examined, no change in patient's condition since H&P completed
[2017-01-27] MEDS ORDERED: ONDANSETRON 4 MG/2 ML VIAL ONE (12:24)
[2017-01-27] MEDS ORDERED: ONDANSETRON 4 MG/2 ML VIAL IVP PRN (14:24)
[2017-01-27] MEDS ORDERED: PROMETHAZINE HCL 25 MG/ML INJ IVP PRN (14:24)
[2017-01-27] MEDS ORDERED: NALOXONE HCL 0.4 MG/ML INJ IVP PRN (14:24)
--- NOTE | 2017-01-27 14:41 | POSTOPPROG ---
Post Op Note Date of Operation: 01/27/17 Surgeon: Alonzo Harris Anesthesia: LMA Pre-op Diagnosis: Right ureteral calculus Procedure: Right ureteroscopy, laser lithotripsy Findings: Upper ureteral calculus Inf/Abcess present in the surg proc area at time of surgery?: No Complications: none
[2017-01-27 15:01] VITALS: TEMP 96.8
[2017-01-27] MEDS: fentaNYL 100 MCG/2 ML INJ IVP PRN ×2 (15:11→16:02)
--- NOTE | 2017-01-27 16:02 | POSTANESTH ---
Post Anesthetic Evaluation Cardiovascular Status: Normal, Stable Respiratory Status: Normal, Stable Level of Consciousness/Mental Status: Can Participate in Eval Pain Control: Adequate, Prn Tx Ordered Nausea/Vomiting Control: Adequate, Prn Tx Ordered Complications Possibly Related to Anesthesia: None Noted
[2017-01-27 16:06] VITALS: BP 149/101; PULSE 86; RESP 18; O2SAT 90
--- NOTE | 2017-01-27 16:08 | POSTOPPROG ---
Post Op Note Date of Operation: 01/27/17 Surgeon: Dilia Martinez Anesthesiologist: janay Anesthesia: GET(General Endotracheal) Pre-op Diagnosis: metastatic breast ca Post-op Diagnosis: same Indication: 46 yo with breast cancer Procedure: R US guided IJ Findings: tip in SVC Inf/Abcess present in the surg proc area at time of surgery?: No Specimen(s): none
--- NOTE | 2017-01-27 19:32 | GOP ---
[f rep st] OPERATIVE REPORT DATE OF OPERATION: 01/27/2017 SURGEON: Alonzo Harris MD PREOPERATIVE DIAGNOSIS: Right ureteral calculus. POSTOPERATIVE DIAGNOSIS: Right ureteral calculus. PROCEDURE PERFORMED: Right ureteroscopy with laser lithotripsy, stone fragmentation. FINDINGS: INDICATIONS: The patient is a 46-year-old female, who was found to have an obstructing right lower ureteral stone. She is also being treated for metastatic breast cancer. After discussing options, she elected to come in for port placement for chemotherapy and stone removal. DESCRIPTION OF PROCEDURE: After informed consent, under general LMA anesthesia, and after Dr. Martinez placed a chemotherapy port, the patient was repositioned in the lithotomy position with her genital ia sterilely prepped and draped. Cystoscopy was carried out and a Sensor guidewire advanced. The u reteroscope was advanced to the level of stone. Holmium laser fiber (200 microns) was used at 8 karin ts of energy to fragment the stone into dust. The ureter was quite dilated, and there was free effl ux from the ureteral orifice, so no stent was placed. The patient was awakened and transferred to r ecovery room in stable condition. There were no intraoperative complications, specimens or blood lo ss. /[id number]/MODL
--- NOTE | 2017-01-27 22:12 | GOP ---
[f rep st] OPERATIVE REPORT DATE OF OPERATION: 01/27/2017 SURGEON: Dilia Martinez MD ANESTHESIA: General. ANESTHESIOLOGIST: Adams Juarez MD PREOPERATIVE DIAGNOSIS: Right metastatic breast cancer. POSTOPERATIVE DIAGNOSIS: Right metastatic breast cancer. PROCEDURE PERFORMED: Left ultrasound-guided internal jugular PowerPort placement. FINDINGS: tip in SVC SPECIMENS: None. ESTIMATED BLOOD LOSS: 20 cc. INDICATIONS: The patient is a 46-year-old woman, who has metastatic breast cancer. She will require a port for chemotherapy. DESCRIPTION OF PROCEDURE: Patient was brought into the operating room, placed supine on the table, and general anesthesia was administered. The bilateral neck and chest were prepped and draped in the usual sterile fashion. I infiltrated all the sites with 0.5% Marcaine prior to making incisions. I used the ultrasound to identify the left internal jugular vein. It was very deep. It took several attempts to get dark return of blood flow. Once I had dark return of blood flow, I threaded the guidewire and removed the needle. Under fluoroscopy I could see to the guidewire was bending back on itself at the innominate. I used fluoroscopy to do several manipulations to drop the guidewire into the superior vena cava. After the wire was in the right atrium, I created a pocket to accommodate the port in the left chest. I tunneled the port up to the insertion site. Using Seldinger technique, I placed a dilator and sheath over the wire. I removed the wire and the dilator. I threaded the catheter through the sheath and peeled away the sheath. Under fluoroscopy, the catheter was found to double back on itself just before the SVC. I then removed the catheter from the port. I brought the catheter back out of the neck incision and threaded a Glidewire. Placement was confirmed in the inferior vena cava. I then threaded the catheter over the wire and removed the wire. Next, I placed a tunneler and tunneled the catheter back into the pocket into the chest. I reconnected this to the port. Placement was confirmed with fluoroscopy. The catheter was then in the superior vena cava. There was no kinking of the catheter. The port withdrew blood easily and was flushed with heparin. The pocket was closed with 3-0 Vicryl followed by 4-0 Monocryl. Dermabond was applied to her incision. She tolerated the procedure well. /[id number]/MODL MTDD
== END 2017-01-27 16:46 | disposition home or self-care (01) ==
LOC: FSGY 09:58
PROVIDERS: ATTEND Urology
DX: N20.1 Calculus of ureter (principal); C77.1 Secondary and unspecified malignant neoplasm of intrathoracic lymph nodes; K21.9 Gastro-esophageal reflux disease without esophagitis; E66.9 Obesity, unspecified; Z68.41 Body mass index [BMI] 40.0-44.9, adult; Z90.13 Acquired absence of bilateral breasts and nipples; Z85.3 Personal history of malignant neoplasm of breast; Z87.442 Personal history of urinary calculi
CPT/HCPCS: 36561; 52353; 71010; 76001; C1769; C1788; J0690; J1100; J1642; J2250; J2405; J2704; J3010

== ENCOUNTER → 2017-02-28 | Outpatient (CLI) | payer OTHER | LOC: FIMAGING 08:33 | PROVIDERS: ATTEND Urology | DX: N20.0 Calculus of kidney (principal) ==

== ENCOUNTER → 2017-04-18 | Outpatient (CLI) | payer OTHER | LOC: FIMAGING 08:23 | PROVIDERS: ATTEND Internal Medicine Hematology & Oncology | DX: M89.8X8 Other specified disorders of bone, other site (principal); C50.211 Malignant neoplasm of upper-inner quadrant of right female breast | CPT/HCPCS: 78306; A9503; J1642 ==

== ENCOUNTER → 2017-05-18 | Outpatient (CLI) | payer OTHER | LOC: FIMAGING 17:09 | PROVIDERS: ATTEND Internal Medicine Hematology & Oncology | DX: M79.601 Pain in right arm (principal); R22.1 Localized swelling, mass and lump, neck; Z85.3 Personal history of malignant neoplasm of breast ==

== ENCOUNTER → 2017-06-22 | Outpatient (CLI) | payer OTHER | LOC: FIMAGING 14:43 | PROVIDERS: ATTEND Radiology Radiation Oncology | DX: I89.9 Noninfective disorder of lymphatic vessels and lymph nodes, unspecified (principal); C50.919 Malignant neoplasm of unspecified site of unspecified female breast; Z95.828 Presence of other vascular implants and grafts ==

== ENCOUNTER → 2017-06-30 | Outpatient (CLI) | payer OTHER | LOC: FIMAGING 08:50 | PROVIDERS: ATTEND Internal Medicine Hematology & Oncology | DX: M25.511 Pain in right shoulder (principal); C79.51 Secondary malignant neoplasm of bone; Z85.3 Personal history of malignant neoplasm of breast ==

== ENCOUNTER → 2017-07-17 | Outpatient (CLI) | payer OTHER | LOC: FIMAGING 09:15 | PROVIDERS: ATTEND Internal Medicine Hematology & Oncology | DX: M75.111 Incomplete rotator cuff tear or rupture of right shoulder, not specified as traumatic (principal) ==

== ENCOUNTER → 2017-07-28 | Outpatient (CLI) | payer OTHER ==
[~2017-07-28] MED LIST changes: +BUPIVACAINE 0.25% 30 ML SDV ONE; -IOPAMIDOL (ISOVUE-M 300) 15 ML VIAL ONE; +LIDOCAINE 1% 300 MG/30 ML SDV ONE
== END ==
LOC: FIMAGING 07:52
PROVIDERS: ATTEND Internal Medicine Hematology & Oncology
PROC: 3E0U3GC Introduction of Other Therapeutic Substance into Joints, Percutaneous Approach (ICD-10-PCS; principal; 2017-07-28)
DX: M75.111 Incomplete rotator cuff tear or rupture of right shoulder, not specified as traumatic (principal)
CPT/HCPCS: J1642

== ENCOUNTER 2017-08-10 10:01 | Inpatient (IN) | payer OTHER ==
--- NOTE | 2017-08-10 10:58 | CPEKG ---
Heart Rate: 125 RR Interval: 480 P-R Interval: 128 QRSD Interval: 80 QT Interval: 312 QTC Interval: 450 P Kent: 36 QRS Kent: 28 T Wave Kent: 50 EKG Severity - ABNORMAL ECG - EKG Impression: SINUS TACHYCARDIA EKG Impression: PROBABLE LEFT ATRIAL ABNORMALITY EKG Impression: PROBABLE INFERIOR INFARCT, AGE INDETERMINATE EKG Impression: BORDERLINE R WAVE PROGRESSION, ANTERIOR LEADS Electronically Signed By: Feli Feng 10-Aug-2017 15:29:07
[2017-08-10 11:00] LABS: PLATELET COUNT 254 10^3/uL (150-400)
[2017-08-10] MEDS ORDERED: ONDANSETRON 4 MG/2 ML VIAL ONE (11:48)
[2017-08-10] MEDS ORDERED: ONDANSETRON 4 MG/2 ML VIAL IVP ONE (11:49)
[2017-08-10] MEDS ORDERED: NS 1,000 ML IV ONE (12:16)
--- NOTE | 2017-08-10 12:16 | EDPHY ---
H & P Time Seen by Provider: 08/10/17 11:09 HPI/ROS: CHIEF COMPLAINT: Shortness of breath, upper chest pain HISTORY OF PRESENT ILLNESS: 46-year-old female with metastatic breast cancer presents with shortness of breath and upper chest pain. Onset of shortness of breath last evening, persistent since then. Associated with nausea and a subjective fever last evening. She has bilateral upper moderate chest pain, which prevented her from sleeping last night. The pain increases with deep inspiration and with movement. She has an occasional cough. REVIEW OF SYSTEMS: Constitutional: no chills Eyes: No visual changes ENT: No sore throat Gastrointestinal: no vomiting, no abdominal pain Genitourinary: no dysuria Musculoskeletal: No leg pain or swelling Skin: No rash Neurological: No headache, no weakness Psychiatric: Situational depression Past Medical/Surgical History: Breast cancer Social History: Oncologist: Dr. White Smoking Status: Never smoked Physical Exam: General Appearance: Alert, pleasant, nontoxic-appearing Eyes: Pupils equal and round, no conjunctival pallor or injection ENT, Mouth: Mucous membranes moist Neck: Normal inspection, tender supra clavicular adenopathy laterally Respiratory: Lungs are clear to auscultation Cardiovascular: Regular tachycardia Gastrointestinal: Abdomen is soft and nontender Neurological: A&O, nonfocal exam Skin: Warm and dry, no rash Extremities: Nontender, no pedal edema Psychiatric: Mood and affect normal Constitutional: Initial Vital Signs Temperature (C) 37.1 C 08/10/17 10:07 Heart Rate 131 H 08/10/17 10:07 Respiratory Rate 25 H 08/10/17 10:07 Blood Pressure 168/112 H 08/10/17 10:07 O2 Sat (%) 94 08/10/17 10:07 O2 Delivery Mode Room Air O2 (L/minute) 2 Allergies/Adverse Reactions: hydrocodone bitartrate [From Vicodin] Allergy (Verified 08/10/17 10:06) Other-Enter Comments Sulfa (Sulfonamide Antibiotics) Allergy (Verified 08/10/17 10:06) Swelling/neck,face,throat Home Medications: Medication Instructions Recorded Albuterol [Proventil Inhaler HFA 2 puffs IH Q4 PRN 08/31/15 (*)] Fluticasone Nasal [Flonase Nasal 2 sprays NASAL HS PRN 08/31/15 Patrick] Capecitabine [Xeloda (*)] 1,000 mg PO BID 08/10/17 Dexamethasone [Decadron 4 MG (*)] 4 mg PO BID PRN 08/10/17 Ibuprofen [Motrin (*)] 200 mg PO DAILY PRN 08/10/17 LORazepam [Ativan (*)] 0.5 mg PO HS 08/10/17 Prochlorperazine Maleate 10 mg PO Q4-6PRN PRN 08/10/17 [Compazine 10mg (*)] guaiFENesin [Mucinex 600 MG (*)] 1,200 mg PO BID PRN 08/10/17 oxyCODONE/APAP 5/325 [Percocet 1 - 2 tab PO Q4H PRN 08/10/17 5/325 (*)] traMADol [Ultram 50 mg (*)] 50 mg PO Q4H PRN 08/10/17 Albuterol [Proventil Inhaler HFA 2 puffs IH Q4 PRN #1 mdi 08/11/17 (*)] predniSONE 40 mg PO DAILY #8 tablet 08/11/17 Medical Decision Making - Diagnostics EKG Interpretation: EKG interpreted by me reveals sinus tachycardia, rate 125, inferior Q-waves, her line R-wave progression. Imaging Results: Chest X-Ray 08/10/17 11:03 Impression: 1. Hypoventilation, cardiomegaly, and chronic bronchitis unchanged since 7 months prior. 2. No pneumonia, effusion, or failure. Chest/Thorax CTA 08/10/17 12:12 Impression: 1. No definite pulmonary embolus. There is, however, limitation of the left lower lobe secondary to motion artifact. 2. Radiation fibrosis medial right upper lobe similar in appearance. No new lung consolidation. Hypoventilation of the right lung with elevation of the right hemidiaphragm. 3. Evidence of osseous metastatic disease in the sternum, similar in appearance. 4. Status post bilateral mastectomy and breast reconstructive surgery. 5. Hepatomegaly with fatty infiltration of the liver. Results discussed with Dr. Feli Feng on 10 August 2017 at 1325 hours. ED Course/Re-evaluation: This patient presents with upper chest pain and shortness of breath. Chest x- ray reveals no acute infiltrate. Clinical presentation concerning for acute pulmonary embolism. CT pulmonary angiogram ordered. CT pulmonary angiogram reveals no evidence of pulmonary embolism or pneumonia. Results discussed with the patient. Given shortness of breath, tachycardia and chest pain, still concerned about possible PE, I will proceed with bilateral lower extremity ultrasound. Regardless of this result, I feel that she will need to be admitted for further evaluation. The hospitalist service was consulted for admission. BLE sono negative. No evidence of thromboembolic disease. Alternative possibilities include cardiac etiology, though no pericardial effusion on CTA, EKG non-ischemic, young and atypical/prolonged sx. No wheezing on lung exam, and O2 saturation normal; doubt bronchospasm. Pulm vasc on CXR appears normal; doubt pulm edema. Differential Diagnosis: Differential diagnosis includes though it is not limited to pneumonia, pneumothorax, pulmonary embolism, aortic dissection, pericarditis, acute coronary syndrome. - Data Points Laboratory Results: Laboratory Results 08/11/17 04:40 08/11/17 04:40 Medications Given: Acetaminophen (Tylenol) 650 mg PO Q4HRS PRN PRN Reason: Pain, Mild/Fever, Can Take PO Stop: 02/06/18 14:30 Last Admin: 08/10/17 15:12 Dose: 650 mg Amlodipine Besylate (Norvasc) 10 mg PO DAILY [facility] Stop: 02/09/18 07:59 Last Admin: 08/13/17 08:55 Dose: Not Given Azithromycin (Zithromax) 500 mg PO DAILY [facility] PRN Reason: Protocol Stop: 09/10/17 18:59 Last Admin: 08/13/17 08:48 Dose: 500 mg Enoxaparin Sodium (Lovenox) 40 mg SC DAILY [facility] Stop: 02/07/18 08:59 Last Admin: 08/13/17 08:54 Dose: 40 mg Hydralazine HCl (Apresoline) 10 mg IVP Q4 PRN PRN Reason: SBP>170 DBP>100 Stop: 02/08/18 02:39 Last Admin: 08/12/17 02:56 Dose: 10 mg Ibuprofen (Motrin) 200 mg PO DAILY PRN PRN Reason: Headache Stop: 02/06/18 15:37 Last Admin: 08/12/17 12:19 Dose: 200 mg Lorazepam (Ativan) 0.5 mg PO HS [facility] Stop: 02/06/18 20:59 Last Admin: 08/12/17 21:42 Dose: 0.5 mg Ondansetron HCl (Zofran) 4 mg IVP Q4HRS PRN PRN Reason: Nausea/Vomiting, Can't Take PO Stop: 02/06/18 14:30 Last Admin: 08/13/17 08:53 Dose: 4 mg Oxycodone/Acetaminophen (Percocet 5/325) 1 - 2 tab PO Q4H PRN PRN Reason: Pain, Severe Stop: 08/20/17 15:39 Last Admin: 08/13/17 09:22 Dose: 2 tab Promethazine HCl (Phenergan) 6.25 mg IVP Q6 PRN PRN Reason: Nausea/Vomiting, Can't Take PO Stop: 02/08/18 02:39 Last Admin: 08/12/17 02:57 Dose: 6.25 mg Discontinued Medications Albuterol (Proventil Neb) 3 ml IH QID [facility] Stop: 02/06/18 20:59 Last Admin: 08/13/17 12:11 Dose: 3 ml Amlodipine Besylate (Norvasc) 5 mg PO DAILY [facility] Stop: 02/08/18 18:44 Last Admin: 08/12/17 19:28 Dose: 5 mg Clonidine (Catapres) 0.1 mg PO ONCE ONE Stop: 08/13/17 09:54 Last Admin: 08/13/17 10:53 Dose: 0.1 mg Hydralazine HCl (Apresoline) 10 mg PO Q8H PRN PRN Reason: HTN Stop: 02/07/18 19:44 Last Admin: 08/13/17 04:52 Dose: 10 mg Sodium Chloride (Ns) 1,000 mls @ 0 mls/hr IV ONCE ONE; Wide Open PRN Reason: Protocol Stop: 08/10/17 12:17 Last Admin: 08/10/17 12:20 Dose: 1,000 mls Sodium Chloride (Ns) 1,000 mls @ 150 mls/hr IV CONT [facility] Stop: 02/06/18 14:44 Last Admin: 08/11/17 22:42 Dose: 1,000 mls Sodium Chloride (Ns) 1,000 mls @ 0 mls/hr IV ONCE ONE PRN Reason: Wide Open Stop: 08/11/17 18:27 Last Admin: 08/11/17 22:45 Dose: 1,000 mls Sodium Chloride (Ns) 1,000 mls @ 0 mls/hr IV ONCE ONE PRN Reason: Wide Open Stop: 08/11/17 20:17 Last Admin: 08/11/17 20:48 Dose: 1,000 mls Ceftriaxone Sodium/Dextrose (Rocephin 1 Gm (Premix)) 50 mls @ 100 mls/hr IV DAILY [facility] PRN Reason: Protocol Stop: 09/10/17 20:59 Last Admin: 08/13/17 08:53 Dose: 50 mls Sodium Chloride (Ns) 2,700 mls @ 450 mls/hr 30 ml/kg infuse over 6 hr (2700 ml ) IV ONCE ONE Stop: 08/12/17 02:48 Last Admin: 08/11/17 21:30 Dose: 2,700 mls Methylprednisolone Sodium Succinate (Solu-Medrol) 60 mg IVP BID [facility] Stop: 02/06/18 16:44 Last Admin: 08/11/17 09:49 Dose: 60 mg Methylprednisolone Sodium Succinate (Solu-Medrol) 60 mg IVP Q6 [facility] Stop: 02/07/18 18:22 Last Admin: 08/12/17 12:12 Dose: 60 mg Morphine Sulfate (Morphine) 4 mg IVP EDNOW ONE Stop: 08/10/17 11:50 Last Admin: 08/10/17 11:54 Dose: 4 mg Ondansetron HCl (Zofran) 4 mg IVP EDNOW ONE Stop: 08/10/17 11:50 Last Admin: 08/10/17 11:53 Dose: 4 mg Prednisone (Prednisone) 40 mg PO DAILY [facility] Stop: 02/09/18 08:59 Last Admin: 08/13/17 08:53 Dose: 40 mg Departure - Departure Disposition: [facility] Inpatient Acute Clinical Impression: Chest pain Qualifiers: Chest pain type: chest pain on breathing Qualified Code(s): R07.1 - Chest pain on breathing; R07.81 - Pleurodynia Dyspnea Qualifiers: Dyspnea type: dyspnea on exertion Qualified Code(s): R06.09 - Other forms of dyspnea Condition: Fair
[2017-08-10] MEDS ORDERED: IOPAMIDOL (ISOVUE 370) 100 ML BTL IV ONE (12:17)
[2017-08-10] MEDS ORDERED: ACETAMINOPHEN 325 MG TAB PO PRN (14:31)
[2017-08-10] MEDS ORDERED: ALBUTEROL 3 ML DEYVIAL IH PRN (14:31)
--- NOTE | 2017-08-10 15:25 | ASMTLACE ---
[place] Acuity / Level of Answers: No Care: Did the patient have an inpatient admission? Comorbidities - select Answers: Any tumor (including all that apply lymphoma or leukemia) # of Emergency department Answers: 1-2 visits in the last 6 months Score: 3 Date Signed: 08/10/2017 03:25 PM Electronically Signed By:Pat James RN
[2017-08-10] MEDS ORDERED: PROCHLORPERAZINE MALEATE 10 MG TAB PO PRN (15:38)
[2017-08-10] MEDS ORDERED: traMADol 50 MG TAB PO PRN (15:38)
[2017-08-10] MEDS ORDERED: FLUTICASONE NASAL 120 SPRAYS/16 GM MDI EACHNARE PRN (15:38)
[2017-08-10] MEDS ORDERED: guaiFENesin 600 MG TAB.ER PO PRN (15:38)
--- NOTE | 2017-08-10 16:45 | PDGENHP ---
History and Physical - Chief Complaint Cough, SOB - History of Present Illness 46 yo female with hx of breast cancer p/w several days of cough and wheeze. [place] more SOB last night and so presented to the ER. Had one isolated temp of 101 last night but none since. Has received IVF in the E.D. and feels better. Reports some wheezing. She has cp on inspiration. NO palpitations, leg swelling , n/v/d. no focal deficits, no urinary sx's PMHx: Met Breast Ca, R Hydronephrosis, Kidney stones, GERD, Obesity PSHx: , kidney stone removal, port placement Soc: no T/E/I FmHx: Alzheimers, CAD, Stroke, HLD, HTN Labs/Data: Reviewed Mild Leukocytosis, EKG SR, CXR: no infiltrates, CTA: No P.E, osseus metastasis, Radiation fibrosis of medial RUL BMP: unremarkable. PC: 0.18 History Information - Allergies/Home Medication List Allergies/Adverse Reactions: hydrocodone bitartrate [From Vicodin] Allergy (Verified 08/10/17 10:06) Other-Enter Comments Sulfa (Sulfonamide Antibiotics) Allergy (Verified 08/10/17 10:06) Swelling/neck,face,throat Home Medications: Albuterol [Proventil Inhaler HFA (*)] 2 puffs IH Q4 PRN 08/31/15 [Last Taken 06/29] Fluticasone Nasal [Flonase Nasal [place]] 2 sprays NASAL HS PRN 08/31/15 [Last Taken 01/26/17] Capecitabine [Xeloda (*)] 1,000 mg PO BID 08/10/17 [Last Taken 08/09/17 21:00] Dexamethasone [Decadron 4 MG (*)] 4 mg PO BID PRN 08/10/17 [Last Taken 08/08/17] Ibuprofen [Motrin (*)] 200 mg PO DAILY PRN 08/10/17 [Last Taken Unknown] LORazepam [Ativan (*)] 0.5 mg PO HS 08/10/17 [Last Taken 08/09/17] Prochlorperazine Maleate [Compazine 10mg (*)] 10 mg PO Q4-6PRN PRN 08/10/17 [ Last Taken Unknown] guaiFENesin [Mucinex 600 MG (*)] 1,200 mg PO BID PRN 08/10/17 [Last Taken ] oxyCODONE/APAP 5/325 [Percocet 5/325 (*)] 1 - 2 tab PO Q4H PRN 08/10/17 [Last Taken Unknown] traMADol [Ultram 50 mg (*)] 50 mg PO Q4H PRN 08/10/17 [Last Taken 08/09/17] I have personally reviewed and updated: medical history, social history - Social History Smoking Status: Never smoked Review of Systems Review of Systems: ROS: 10pt was reviewed & negative except for what was stated in HPI & below Physical Exam Physical Exam: Temp Pulse Resp BP Pulse Ox 36.8 C 110 H 17 114/111 H 97 08/10/17 15:54 08/10/17 15:54 08/10/17 15:54 08/10/17 15:54 08/10/17 16:02 O2 (L/minute) 2 Constitutional: no apparent distress, not in pain Eyes: PERRL, EOMI Ears, Nose, Mouth, Throat: moist mucous membranes Cardiovascular: regular rate and rhythym Respiratory: no respiratory distress, no rales or rhonchi, reduced air movement , expiratory wheeze Gastrointestinal: normoactive bowel sounds, No tenderness Skin: warm Neurologic: AAOx3 Psychiatric: interacting appropriately, not anxious, not encephalopathic Lymph, Heme, Immunologic: No petechiae Lab Data & Imaging Review 08/10/17 10:45 08/10/17 10:45 WBC 13.28 10^3/uL (3.80-9.50) H 08/10/17 10:45 RBC 5.05 10^6/uL (4.18-5.33) 08/10/17 10:45 Hgb 14.1 g/dL (12.6-16.3) 08/10/17 10:45 Hct 42.1 % (38.0-47.0) 08/10/17 10:45 MCV 83.4 fL (81.5-99.8) 08/10/17 10:45 MCH 27.9 pg (27.9-34.1) 08/10/17 10:45 MCHC 33.5 g/dL (32.4-36.7) 08/10/17 10:45 RDW 14.4 % (11.5-15.2) 08/10/17 10:45 Plt Count 254 10^3/uL (150-400) 08/10/17 10:45 MPV 9.6 fL (8.7-11.7) 08/10/17 10:45 Neut % (Auto) 81.6 % (39.3-74.2) H 08/10/17 10:45 Lymph % (Auto) 7.8 % (15.0-45.0) L 08/10/17 10:45 [place] % (Auto) 9.0 % (4.5-13.0) 08/10/17 10:45 Eos % (Auto) 0.5 % (0.6-7.6) L 08/10/17 10:45 Baso % (Auto) 0.5 % (0.3-1.7) 08/10/17 10:45 Nucleat RBC Rel Count 0.0 % (0.0-0.2) 08/10/17 10:45 Absolute Neuts (auto) 10.83 10^3/uL (1.70-6.50) H 08/10/17 10:45 Absolute Lymphs (auto) 1.04 10^3/uL (1.00-3.00) 08/10/17 10:45 Absolute Monos (auto) 1.20 10^3/uL (0.30-0.80) H 08/10/17 10:45 Absolute Eos (auto) 0.07 10^3/uL (0.03-0.40) 08/10/17 10:45 Absolute Basos (auto) 0.06 10^3/uL (0.02-0.10) 08/10/17 10:45 Absolute Nucleated RBC 0.00 10^3/uL (0-0.01) 08/10/17 10:45 Immature Gran % 0.6 % (0.0-1.1) 08/10/17 10:45 Immature Gran # 0.08 10^3/uL (0.00-0.10) 08/10/17 10:45 VBG Lactic Acid 1.7 mmol/L (0.7-2.1) 08/10/17 10:45 Sodium 138 mEq/L (135-145) 08/10/17 10:45 Potassium 4.2 mEq/L (3.5-5.2) 08/10/17 10:45 Chloride 104 mEq/L (97-110) 08/10/17 10:45 Carbon Dioxide 24 mEq/l (22-31) 08/10/17 10:45 Anion Gap 10 mEq/L (8-16) 08/10/17 10:45 BUN 15 mg/dL (7-23) 08/10/17 10:45 Creatinine 0.6 mg/dL (0.6-1.0) 08/10/17 10:45 Estimated GFR > 60 08/10/17 10:45 Glucose 98 mg/dL (70-100) 08/10/17 10:45 Calcium 9.2 mg/dL (8.5-10.4) 08/10/17 10:45 Troponin I < 0.012 ng/mL (0.000-0.034) 08/10/17 10:45 Procalcitonin 0.18 ng/mL (0.02-0.10) H 08/10/17 10:45 Assessment & Plan Assessment: #RAD with exacerbation #Leukocytosis, likely viral -negative PC -no infiltrate on studies #Hypoxemia -No P.E #Tachycardia #HTN #Breast Cancer, metastatic Plan: Admit observation IV steroids, can likely change to PO tomorrow. Short burst No obvious infiltrates, unremarkable PC, no abx at this time Suspect leukocytosis and cough triggered by viral syndrome which triggered the RAD. Will obtain viral studies Home meds Lovenox for DVT proph Full Code
[2017-08-10] MEDS: methylPREDNISolone SOD SUCC 125 MG/2 ML VIAL IVP SCH ×2 (17:40→20:51)
[2017-08-10] MEDS: NS 1,000 ML IV SCH (18:35)
[2017-08-10] MEDS: ALBUTEROL 3 ML DEYVIAL IH SCH (20:00)
[2017-08-10] MEDS: LORazepam 0.5 MG TAB PO SCH (20:53)
[2017-08-10] MEDS: IBUPROFEN 200 MG TAB PO PRN (21:05)
[2017-08-11 05:04] LABS: PLATELET COUNT 259 10^3/uL (150-400)
[2017-08-11] MEDS: ALBUTEROL 3 ML DEYVIAL IH SCH ×4 (05:31→20:35)
[2017-08-11] MEDS: methylPREDNISolone SOD SUCC 125 MG/2 ML VIAL IVP SCH (09:49)
[2017-08-11] MEDS: ENOXAPARIN 40 MG/0.4 ML SYR SC SCH (09:50)
--- NOTE | 2017-08-11 10:22 | ASMTCMCOM ---
CM Note CM Note Notes: Chart reviewed for dc planning purposes. 46 year old female admitted via ED with fever, tachycardia and hypoxia. Likely viral per physician review. Do not anticipate discharge needs at this time. CM available should needs change. Date Signed: 08/11/2017 10:22 AM Electronically Signed By:Lelo White RN
[2017-08-11] MEDS ORDERED: NS 1,000 ML IV ONE ×2 (18:26→20:16)
--- NOTE | 2017-08-11 18:51 | HOSPPROG ---
Hospitalist Progress Note Assessment/Plan: #Acute hypoxic resp failure: 2/2 asthma exacerbation -viral PCR negative. No e/o PNA and no PE -still poor air movement. Cont nebs, pred. Add Azithro for inflammation #Asthma exacerbation: plan as above #Tachycardia: due to nebs #Leukocytosis: due to stress response/steroids #Metastatic breast cancer: Xeloda #Diet: regular #Disp: requires inpatient admission with dyspnea, tachycardia. Cont Duoneb, steroids Subjective: short of breath with exertion, "but want to go home" Objective: Vital Signs Temp Pulse Resp BP Pulse Ox 36.3 C 124 H 20 147/100 H 100 08/11/17 15:43 08/11/17 16:33 08/11/17 16:33 08/11/17 15:43 08/11/17 16:33 Microbiology 08/10/17 15:50 Respiratory Panel (PCR) - Final Nasal, Sinus - Unspecified No Organism Detected Laboratory Results 08/11/17 04:40 08/11/17 04:40 08/10/17 08/11/17 08/12/17 05:59 05:59 05:59 Intake Total 1825 2200 Balance 1825 2200 - Physical Exam Constitutional: obese Eyes: PERRL Ears, Nose, Mouth, Throat: moist mucous membranes, hearing normal Cardiovascular: tachycardia Respiratory: other (no wheezes, but diminished BS and poor air movement) Gastrointestinal: normoactive bowel sounds, soft, non-tender abdomen Neurologic: AAOx3, CN II-XII Intact ICD10 Worksheet Patient Problems: Problems Problem Status Onset Chest pain Acute Left nephrolithiasis Acute Tachycardia Acute
[2017-08-11] MEDS: OXYCODONE/APAP 5/325 TAB PO PRN (19:09)
[2017-08-11] MEDS ORDERED: IOPAMIDOL (ISOVUE 370) 100 ML BTL IV ONE (20:27)
--- NOTE | 2017-08-11 20:35 | CPEKG ---
Heart Rate: 117 RR Interval: 513 P-R Interval: 144 QRSD Interval: 88 QT Interval: 336 QTC Interval: 469 P [place]: 42 QRS [place]: 26 T Wave [place]: 3 EKG Severity - ABNORMAL ECG - EKG Impression: SINUS TACHYCARDIA EKG Impression: PROBABLE INFERIOR INFARCT, AGE INDETERMINATE EKG Impression: CONSIDER ANTERIOR INFARCT Electronically Signed By: Devon Patel 11-Aug-2017 20:37:43
[2017-08-11] MEDS ORDERED: NS 2,700 ML IV ONE (20:49)
--- NOTE | 2017-08-11 20:57 | HOSPPROG ---
Hospitalist Progress Note Assessment/Plan: 35 MIN OF CRITICAL CARE TIME SPENT WITH THIS PATIENT, AT BEDSIDE, COORDINATING WITH THE NURSES, REGARDING THE ISSUES OUTLINED BELOW: -originally called by nurse for tachycardia and right flank pain, reviewed patient's vital signs, her systolic blood pressure was in the 130s to 140s, her heart rate was in the 120s to 130s, and has been persistently tachycardic during the majority of her hospitalization -reviewed the daytime hospitalist notes, they indicated the patient has been hospitalized for acute reactive airways, receiving steroids, bronchodilators, azithromycin -we do lactic acid which was 4.6 indicating hypoperfusion, she has received 1 L normal saline and continues to be tachycardic, and the patient received some Percocet for pain control -evaluated at bedside, the patient has a heart rate of 125, a systolic blood pressure of 150, rhythm is regular, no murmurs, lungs clear to auscultation on inspiration expiration, she has no flank tenderness or abdominal tenderness, bowel sounds are present, no suprapubic tenderness, alert awake oriented x3, normal cap refill, no lower extremity edema -given the patient has an extensive history of kidney stones, and she was experiencing right flank pain which was very similar in character to her previous stones, a concern that the patient has recurrent obstructive stone resulting in both inflammation and possible upper urinary tract infection -I suspect that the reason the patient does not have tenderness on exam is that she has received pain medication prior to our examination -will get urinalysis, get urine culture, get blood cultures, and repeat her procalcitonin level, as her admission procalcitonin was elevated, and I suspect that it will be even higher at this juncture -she will receive the weight based fluid bolus of the severe sepsis protocol, repeat venous lactic acids thereafter -will administer 1 g of IV ceftriaxone as a suspect that this is a urinary source -given that the patient has a D-dimer of 3, and suboptimal visualization on recent CT angiogram secondary to motion artifact, will repeat CT angiogram of the chest, with a noncontrast study of the abdomen to evaluate for kidney stone and obstructive uropathy, as well as a contrast study of the abdomen pelvis to evaluate for possible cholecystitis in the setting of abnormal AST and ALT as well as right-sided pain and suspected infection -continue her steroids for reactive airways at 60 mg q.6, up titrated earlier on the shift given tachypnea, and discontinue azithromycin -I suspect the patient has severe sepsis secondary to urinary source with evidence of end-organ failure including lactic acidosis, suggesting autonomic dysregulation in the setting of infection -transfer to step-down unit at this time -patient is critically ill from suspected severe sepsis with high risk of worsening morbidity and/or mortality -discussed all the above with the patient and her son Objective: Vital Signs Temp Pulse Resp BP Pulse Ox 36.6 C 125 H 16 156/107 H 96 08/11/17 19:37 08/11/17 19:37 08/11/17 19:37 08/11/17 19:37 08/11/17 19:37 Microbiology 08/10/17 15:50 Respiratory Panel (PCR) - Final Nasal, Sinus - Unspecified No Organism Detected Laboratory Results 08/11/17 04:40 08/11/17 04:40 08/10/17 08/11/17 08/12/17 05:59 05:59 05:59 Intake Total 1825 2500 Output Total 130 Balance 1825 2370 ICD10 Worksheet Patient Problems: Problems Problem Status Onset Chest pain Acute Left nephrolithiasis Acute Tachycardia Acute
[2017-08-11] MEDS: hydrALAZINE 10 MG TAB PO PRN (21:10)
--- NOTE | 2017-08-11 21:34 | PDMN ---
Medical Necessity Medical necessity: Patient meets inpatient criteria per physician note and MCG M -60 Asthma (ongoing tachycardia after IV hydration, LOS will be > 2 midnights for continued IV steroids, nebulizers, addition of azithromycin.)
[2017-08-11] MEDS: AZITHROMYCIN 250 MG TAB PO SCH (22:42)
[2017-08-11] MEDS: NS 1,000 ML IV SCH (22:42)
[2017-08-11] MEDS: LORazepam 0.5 MG TAB PO SCH (22:42)
[2017-08-11] MEDS: ONDANSETRON 4 MG/2 ML VIAL IVP PRN (23:47)
[2017-08-12] MEDS: methylPREDNISolone SOD SUCC 125 MG/2 ML VIAL IVP SCH ×3 (00:37→12:12)
[2017-08-12] MEDS: hydrALAZINE 20 MG/ML VIAL IVP PRN (02:56)
[2017-08-12] MEDS: PROMETHAZINE HCL 25 MG/ML INJ IVP PRN (02:57)
[2017-08-12] MEDS: OXYCODONE/APAP 5/325 TAB PO PRN (04:22)
[2017-08-12] MEDS: ALBUTEROL 3 ML DEYVIAL IH SCH ×4 (05:23→20:51)
[2017-08-12 06:18] LABS: PLATELET COUNT 255 10^3/uL (150-400)
[2017-08-12] MEDS: AZITHROMYCIN 250 MG TAB PO SCH (08:52)
[2017-08-12] MEDS: ENOXAPARIN 40 MG/0.4 ML SYR SC SCH (09:20)
--- NOTE | 2017-08-12 12:18 | HOSPPROG ---
Hospitalist Progress Note Assessment/Plan: #Acute hypoxic resp failure: 2/2 asthma exacerbation, improved air exchange today -viral PCR negative. No e/o PNA and no PE -Cont nebs -change to po pred -Add Azithro for inflammation #Asthma exacerbation: plan as above #Tachycardia: suspect due to nebs, steroids. CTA neg for PE. #Leukocytosis: suspect due to stress response/steroids. UA neg. No e/o PNA. Consider d/c ceftriaxone if BCx's remain neg. -follow #Lactic acidosis: trended down, then back up, infectious etiology seems unlikely with PCT 0.12. Could be related to nebs. -repeat lactate down to 2.7. Pt appears non-toxic, will stop following #Metastatic breast cancer: Xeloda #Diet: regular #Disp: cont inpt Subjective: Pt feels much better, wants to go home. No fevers/chills. No pain. No cough or SOB. Wheezing improved. Objective: Vital Signs Temp Pulse Resp BP Pulse Ox 36.9 C 119 H 24 H 144/99 H 96 08/12/17 07:39 08/12/17 09:35 08/12/17 09:35 08/12/17 07:39 08/12/17 09:35 Laboratory Results 08/12/17 05:45 08/12/17 05:45 08/11/17 08/12/17 08/13/17 05:59 05:59 05:59 Intake Total 3011 Output Total 1330 Balance 1681 - Physical Exam Constitutional: no apparent distress Eyes: PERRL Ears, Nose, Mouth, Throat: moist mucous membranes Cardiovascular: tachycardia Respiratory: no respiratory distress, reduced air movement Skin: warm Musculoskeletal: full muscle strength Neurologic: AAOx3 Psychiatric: interacting appropriately ICD10 Worksheet Patient Problems: Problems Problem Status Onset Chest pain Acute Left nephrolithiasis Acute Tachycardia Acute
[2017-08-12] MEDS: IBUPROFEN 200 MG TAB PO PRN (12:19)
[2017-08-12] MEDS: hydrALAZINE 10 MG TAB PO PRN (17:51)
[2017-08-12] MEDS ORDERED: amLODIPine BESYLATE 5 MG TAB PO SCH (18:45)
[2017-08-12] MEDS: LORazepam 0.5 MG TAB PO SCH (21:42)
[2017-08-13] MEDS: ALBUTEROL 3 ML DEYVIAL IH SCH ×2 (04:38→12:11)
[2017-08-13] MEDS: hydrALAZINE 10 MG TAB PO PRN (04:52)
[2017-08-13 05:29] LABS: PLATELET COUNT 290 10^3/uL (150-400)
[2017-08-13] MEDS ORDERED: NS 1,000 ML IV SCH (07:30)
[2017-08-13] MEDS: AZITHROMYCIN 250 MG TAB PO SCH (08:48)
[2017-08-13] MEDS: ONDANSETRON 4 MG/2 ML VIAL IVP PRN (08:53)
[2017-08-13] MEDS: amLODIPine BESYLATE 5 MG TAB PO SCH ×2 (08:53→08:55)
[2017-08-13] MEDS: ENOXAPARIN 40 MG/0.4 ML SYR SC SCH (08:54)
[2017-08-13] MEDS ORDERED: predniSONE 20 MG TAB PO SCH ×2 (09:00→13:21)
[2017-08-13] MEDS: OXYCODONE/APAP 5/325 TAB PO PRN ×2 (09:22→22:03)
[2017-08-13] MEDS ORDERED: hydrALAZINE 10 MG TAB PO SCH ×2 (10:00→14:00)
--- NOTE | 2017-08-13 13:00 | HOSPPROG ---
Hospitalist Progress Note Assessment/Plan: #Acute hypoxic resp failure: resolved, now on room air. At this point, I doubt this was an asthma exacerbation. I've heard no wheezing. I suspect her SOB on presentation was more likely hypertensive urgency or possibly even an anginal equivalent. -d/c prednisone and nebs as these may be worsening her tachycardia and hypertension #Hypertensive urgency: +JUAREZ, BP has been difficult to control. Now on Norvasc 10 mg qd, Hydralazine 25 mg TID and required clonidine 0.1 mg once today. Echo reviewed, +LVH, nl EF. EKG abnormal with Q waves, which are new. Discussed with cards. -cont norvasc, add losartan, cont prn hydral -check lipid status -trend trop -recheck echo given new Q waves to ensure no WMA #Tachycardia: suspect due to nebs, steroids. CTA neg for PE. -trial IVF's today to see if this responds -stop prednisone #Leukocytosis: suspect due to stress response/steroids. UA neg. No e/o PNA. PCT low risk. BCx's neg. -d/c ceftriaxone, s/p 3 doses for suspected urinary source of infection though note neg ua #Lactic acidosis: trended down, then back up, infectious etiology seems unlikely with PCT 0.12. Could be related to nebs. -repeat lactate down to 2.7. Pt appears non-toxic, will stop following #Metastatic breast cancer: Xeloda #Diet: regular #Disp: cont inpt for further cardiac eval and BP management Subjective: Pt doing ok. Had very high BP this am and when she went for a walk , she developed dyspnea and lightheadedness. No CP. No SOB at rest. She has no h/o asthma as an adult. Objective: Vital Signs Temp Pulse Resp BP Pulse Ox 36.6 C 117 H 16 150/94 H 96 08/13/17 08:00 08/13/17 12:18 08/13/17 12:18 08/13/17 11:59 08/13/17 12:18 Laboratory Results 08/13/17 05:05 08/13/17 05:05 08/12/17 08/13/17 08/14/17 05:59 05:59 05:59 Intake Total 3011 850 Output Total 1330 300 Balance 1681 550 - Physical Exam Constitutional: no apparent distress Eyes: PERRL Ears, Nose, Mouth, Throat: moist mucous membranes Cardiovascular: regular rate and rhythym Respiratory: no respiratory distress, clear to auscultation, reduced air movement Gastrointestinal: normoactive bowel sounds, soft, non-tender abdomen Skin: warm Musculoskeletal: full muscle strength Neurologic: AAOx3 Psychiatric: interacting appropriately ICD10 Worksheet Patient Problems: Problems Problem Status Onset Chest pain Acute Left nephrolithiasis Acute Tachycardia Acute
[2017-08-13] MEDS ORDERED: LEVALBUTEROL 0.31 MG/3 ML DEYVIAL IH PRN (13:20)
[2017-08-13] MEDS ORDERED: LOSARTAN POTASSIUM 25 MG TAB PO SCH (15:00)
[2017-08-13] MEDS ORDERED: ALBUTEROL 3 ML DEYVIAL ONE (16:13)
[2017-08-13] MEDS: LOSARTAN POTASSIUM 25 MG TAB PO SCH (17:52)
[2017-08-13] MEDS: LORazepam 0.5 MG TAB PO SCH (20:25)
[2017-08-13] MEDS ORDERED: METOPROLOL TARTRATE 25 MG TAB PO SCH (21:00)
[2017-08-13] MEDS: hydrALAZINE 20 MG/ML VIAL IVP PRN (21:39)
[2017-08-14] MEDS: IBUPROFEN 200 MG TAB PO PRN ×2 (01:46→16:27)
[2017-08-14] MEDS: hydrALAZINE 20 MG/ML VIAL IVP PRN (01:52)
[2017-08-14] MEDS: OXYCODONE/APAP 5/325 TAB PO PRN (05:34)
[2017-08-14] MEDS: ONDANSETRON DISINTEGRATING 4 MG TAB PO PRN (05:34)
[2017-08-14 05:56] LABS: PLATELET COUNT 287 10^3/uL (150-400)
[2017-08-14] MEDS ORDERED: hydrALAZINE 25 MG TAB PO SCH (08:00)
--- NOTE | 2017-08-14 09:15 | HOSPPROG ---
Hospitalist Progress Note Assessment/Plan: #Acute hypoxic resp failure: resolved, now on room air. At this point, I don't think her presentation was an asthma exacerbation. I've heard no wheezing. I suspect her SOB is more likely hypertensive urgency. -d/c'd prednisone and nebs as these may be worsening her tachycardia and hypertension #Hypertensive urgency: +JUAREZ, BP has been difficult to control, though much improved on low Na diet. Prior echo reviewed, +LVH, nl EF. EKG abnormal with lateral Q waves, which are new. Trops neg. Discussed with cards. -cont losartan, adding metoprolol today -check lipid status -repeat echo today given new Q waves to ensure no WMA: +pericardial effusion, difficult study due to artifact from implants -anastasiya stress today neg for ischemia #Pericardial effusion: seen on TTE today, difficult to assess size -cardiology to consult for consideration of JOSE to better evaluate #Tachycardia: Sinus. CTA neg for PE. Hasn't improved with IVF's or discontinuation of prednisone. ?If pericardial effusion is playing a role. HR up to 140's with ambulation and pt became dizzy. -trial Metoprolol -further eval of pericardial effusion as above -monitor on telemetry #Leukocytosis: Suspect due to stress response/steroids, trending down off prednisone. UA neg. No e/o PNA. PCT low risk. BCx's neg. -d/c ceftriaxone, s/p 3 doses for suspected urinary source of infection though note neg ua #Lactic acidosis: trended down, then back up, infectious etiology seems unlikely with PCT 0.12. Could be related to nebs. -repeat lactate down to 2.7. Pt appears non-toxic, will stop following #Metastatic breast cancer: Xeloda -discussed case with Dr. Mortensen, onc will see tomorrow #Diet: regular #Disp: cont inpt for further cardiac eval and BP management Subjective: Pt feels fine at rest. When she ambulates in the halls, her HR goes up to 140's and she becomes dizzy. Denies CP. No SOB at rest, less JUAREZ. No fevers. Objective: Vital Signs Temp Pulse Resp BP Pulse Ox 36.6 C 130 H 18 107/88 H 95 08/14/17 07:33 08/14/17 07:33 08/14/17 07:33 08/14/17 07:33 08/14/17 07:33 Laboratory Results 08/14/17 05:30 08/14/17 05:30 08/13/17 08/14/17 08/15/17 05:59 05:59 05:59 Intake Total 850 1575 Output Total 300 2 Balance 550 1573 - Physical Exam Constitutional: no apparent distress Eyes: PERRL Ears, Nose, Mouth, Throat: moist mucous membranes Cardiovascular: regular rate and rhythym Respiratory: no respiratory distress, clear to auscultation Gastrointestinal: normoactive bowel sounds, soft, non-tender abdomen Skin: warm Musculoskeletal: full muscle strength Neurologic: AAOx3 Psychiatric: interacting appropriately ICD10 Worksheet Patient Problems: Problems Problem Status Onset Chest pain Acute Left nephrolithiasis Acute Tachycardia Acute
[2017-08-14] MEDS: LOSARTAN POTASSIUM 25 MG TAB PO SCH (09:37)
[2017-08-14] MEDS: METOPROLOL TARTRATE 25 MG TAB PO SCH ×4 (09:37→21:33)
[2017-08-14] MEDS: ENOXAPARIN 40 MG/0.4 ML SYR SC SCH (09:37)
[2017-08-14] MEDS: amLODIPine BESYLATE 5 MG TAB PO SCH (09:38)
--- NOTE | 2017-08-14 10:09 | ASMTCMCOM ---
CM Note CM Note Notes: Chart reviewed. Per hospital medicine patient to remain inpt for cardiac testing. Otherwise independent upon dc to home. CM available should needs arise. Date Signed: 08/14/2017 10:08 AM Electronically Signed By:Lelo White RN
[2017-08-14] MEDS ORDERED: REGADENOSON 0.4 MG/5 ML SYR IVP ONE (10:32)
--- NOTE | 2017-08-14 14:55 | CPR ---
[f rep st] NONINVASIVE CARDIAC PROCEDURE REPORT DATE OF PROCEDURE: 08/14/2017 PROCEDURE: Nuclear Lexiscan stress test. INDICATION: 1. Dyspnea on exertion. 2. Chest discomfort. ORDERING PHYSICIAN: Hospitalist, Derek Wong MD. FINDINGS: Resting EKG shows a sinus tachycardia with a rate of 124. There are no arrhythmias. Rest ing blood pressure 140/90, oxygen saturation 94%. She does have anxiety. STRESS PORTION: Lexiscan was injected rapidly, followed by saline flush. Cardiolite was then inject ed, followed by saline flush. She did note: 1. Increased shortness of breath. 2. Increased anxiety. Peak blood pressure 160/90, peak heart rate 138, oxygen saturation 96%. Resting EKG remains unchanged. No ischemic changes. No arrhythmias noted. RECOVERY: Blood pressure 148/90, heart rate 134, oxygen saturation 95%. She did become nauseated an d vomited in recovery. At this time, she currently is stable for nuclear imaging. /[id number]/MODL
[2017-08-14] MEDS ORDERED: METOPROLOL TARTRATE 25 MG TAB PO SCH (15:00)
--- NOTE | 2017-08-14 15:22 | ECHO ---
[email or web address] [place] [id number] Main: [phone] Fax: Transthoracic Echocardiogram Name: BERTA AQUINO MR#: [id number] Study Date: 08/14/2017 Study Time: 08:12 AM Date of : 1970 Age: 46 year(s) Height: 154.9 cm (61 in.) Weight: 90.27 kg (199 lb.) BSA: 1.89 m2 Gender: Female Examination: Echo Indication: Hypertensive urgency/new Q waves on EKG/eval for WMA Image Quality: Technically Difficult Contrast: Requested by: Geetha Mccoy BP: 107 mmHg/88 mmHg Heart Rate: Rhythm: Indication: Hypertensive urgency/new Q waves on EKG/eval for WMA Procedure Staff Salesperson Recreational Vehicles: Yancy Garcia RDCS Reading Physician: Devon Patel MD Requesting Provider: Conclusions: Global hypercontractility of the left ventricle. Pericardial effusion present - unable to assess severity due to pt's implants.. Pleural effusion noted. Very limited views given interferance with images from breast implants. Grossly the LVEF appears normal. Measurements: Chambers Valvular Assessment AV/MV Valvular Assessment TV/PV Normal Normal Normal Name Value Range Name Value Range Name Value Range MV E Vmax: 0.66 m/s ( - ) MV A Vmax: 1.02 m/s ( - ) MV E/A: 0.65 ( - ) Continued Measurements: Findings: Left Ventricle: Global hypercontractility of the left ventricle. Pericardium: Pericardial effusion present - unable to assess severity due to pt's implants.. (No Signature Object) Patient: BERTA AQUINO Study Date: 08/14/2017 Page 1 of 1 08:12 AM [id number]
[2017-08-14] MEDS: LORazepam 0.5 MG TAB PO PRN (21:40)
[2017-08-15] MEDS: OXYCODONE/APAP 5/325 TAB PO PRN (02:47)
[2017-08-15] MEDS: ONDANSETRON DISINTEGRATING 4 MG TAB PO PRN (09:13)
[2017-08-15 09:16] LABS: PLATELET COUNT 239 10^3/uL (150-400)
[2017-08-15] MEDS: METOPROLOL TARTRATE 25 MG TAB PO SCH ×2 (09:23→19:46)
[2017-08-15] MEDS: LOSARTAN POTASSIUM 25 MG TAB PO SCH (09:24)
[2017-08-15] MEDS ORDERED: NS 500 ML IV ONE (10:06)
[2017-08-15] MEDS ORDERED: MIDAZOLAM 2 MG/2 ML VIAL IVP ONE (10:06)
[2017-08-15] MEDS ORDERED: BENZOCAINE UNIT DOSE SPRAY HURRICAINE MM ONE (10:06)
[2017-08-15] MEDS ORDERED: fentaNYL 100 MCG/2 ML INJ IVP ONE (10:06)
--- NOTE | 2017-08-15 11:33 | GCON ---
[f rep st] CONSULTATION ONCOLOGY CONSULTATION DATE OF CONSULTATION: 08/15/2017 HISTORY OF PRESENT ILLNESS: The patient is a 46-year-old female who is followed by my partner, Dr. Chiki White. She was initially diagnosed with stage IIA, ER/FL positive, HER2/faheem negative breast carcinoma in September 2013. She was treated with bilateral mastectomy, followed by adjuvant chemotherap y (docetaxel and cyclophosphamide x4 cycles). She completed her initial adjuvant chemotherapy in Feb and was then started on tamoxifen. In November 2015, she noted a mass in the right reconstructed breast. A biopsy confirmed recurrent disea se. A subsequent PET scan revealed metastatic disease involving the sternum as well as a cardiophren ic lymph node. The patient was transitioned to Lupron and letrozole beginning in January 2016. She h ad palliative radiation to the sternal lesion, which was completed in February 2016. Unfortunately, in May 2017, she developed an axillary mass as well as progressive disease in med iastinal nodes. She was started on experimental therapy with Taxol and alisertib. She developed pro gressive disease and was taken off therapy. In July of this year, she was started on palliative keep capecitabine. She began this treatment in mid July. She reports a baseline chronic dyspnea that she feels got significantly worse over the past few weeks. She presented to the hospital with dyspnea. A CT angiogram of the chest reveale d no evidence of pulmonary embolus. It was noted that her heart was displaced into the left chest. A subsequent echocardiogram showed a normal left ventricular ejection fraction, but suggested the pre sence of pericardial effusion. Assessing the extent of the pericardial effusion was not possible due to her overlying implant. She is scheduled to have a transesophageal echocardiogram done today. Her Xeloda has been held. She denies recent fevers or chills. PAST MEDICAL HISTORY: Metastatic breast carcinoma as outlined above. The patient had a history of a hysterectomy in 2008. FAMILY MEDICAL HISTORY: Negative for malignancy. SOCIAL HISTORY: The patient is a nonsmoker. She does not drink alcohol. 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 REVIEW OF SYSTEMS: As outlined above. Additionally denies chest pain at the current time. PHYSICAL EXAM: GENERAL: Patient is in a wheelchair when seen. She is in no acute distress. HEENT: Pupils are equal. Sclerae nonicteric. No palpable submandibular, cervical, or supraclavicular elza nopathy. HEART: Regular without murmur. LUNGS: Clear bilaterally. There is no pericardial fricti on rub audible. EXTREMITIES: No extremity swelling or edema. NEUROLOGIC: Patient is alert, orient ed, and appropriate. IMAGING STUDIES: As per HPI. LABORATORY DATA: White count 11.3, hemoglobin 13.3, hematocrit 40.5, platelet count is 239,000. Sod ium 141, potassium 3.9, chloride 102, bicarb 28, BUN 17, creatinine 0.5. AST 171, ALT 227, alk phos 135, total bilirubin is 0.4. IMPRESSION: 1. Metastatic breast carcinoma (patient recently began palliative capecitabine therapy mid July 2017. 2. Pericardial effusion. 3. Transaminitis. RECOMMENDATIONS: The patient is a 46-year-old female with a history of metastatic breast carcinoma a s outlined above. She presents with worsening dyspnea and is found to have a pericardial effusion. I agree with the plan for transesophageal echocardiogram to better characterize her pericardial effus ion. If it is felt to result in cardiac compromise, I think it would be potentially advantageous to perform a pericardiocentesis plus/minus pericardial window. I suspect that this may be a malignant p ericardial effusion. A second possibility would be a pericardial effusion secondary to capecitabine; however, this is a relatively uncommon occurrence. Given the chronicity of her symptoms, I think a malignant effusion is more likely. I support holding her capecitabine at the current time until this can be better clarified. The plan was discussed with the patient. Her questions were answered. Our service will continue to follow her during this hospital stay, and I will notify Dr. White of her hospital admission. /[id number]/MODL
--- NOTE | 2017-08-15 11:34 | PDANEPAE ---
ANE History of Present Illness here for JOSE ANE Past Medical History - Cardiovascular History Hx Hypertension: No Hx Arrhythmias: No Hx Chest Pain: No Hx Coronary Artery / Peripheral Vascular Disease: No Hx CHF / Valvular Disease: No Hx Palpitations: No - Pulmonary History Hx COPD: No Hx Asthma/Reactive Airway Disease: Yes Hx Recent Upper Respiratory Infection: No Hx Oxygen in Use at Home: No Hx Sleep Apnea: No Pulmonary History Comment: ASTHMA - INHALER - Neurologic History Hx Cerebrovascular Accident: No Hx Seizures: No Hx Dementia: No - Endocrine History Hx Diabetes: No Hypothyroid: No Hyperthyroid: No Obesity: moderate - Renal History Hx Renal Disorders: Yes Renal History Comment: KIDNEY STONES - Liver History Hx Hepatic Disorders: No - Neurological & Psychiatric Hx Hx Neurological and Psychiatric Disorders: No - Cancer History Hx Cancer: Yes Cancer History Comment: BREAST CA DX 2013, CHEMO. w/ Mets to Lungs - Congenital Disorder History Hx Congenital Disorders: No - GI History Hx Gastrointestinal Disorders: No - Other Health History Other Health History: ECZEMA - Chronic Pain History Chronic Pain: No - Surgical History Prior Surgeries: R axilla- excision mass - 2015;. CSECTION X 3. HYSTERECTOMY. LITHROTRIPSY. B MASTECTOMY 2013. BREAST RECONST SURG/IMPLANTS 2015. STONE REMOVAL 08/2015 & 10/2015 ANE Review of Systems Review of systems is: negative Review of Systems: - Exercise capacity Exercise capacity: >=4 METS ANE Patient History - Allergies Allergies/Adverse Reactions: hydrocodone bitartrate [From Vicodin] Allergy (Verified 08/10/17 10:06) Other-Enter Comments Sulfa (Sulfonamide Antibiotics) Allergy (Verified 08/10/17 10:06) Swelling/neck,face,throat - Home Medications Home medications: home medication list seen and reviewed Home Medications: Albuterol [Proventil Inhaler HFA (*)] 2 puffs IH Q4 PRN 08/31/15 [Last Taken 06/29] Fluticasone Nasal [Flonase Nasal [place]] 2 sprays NASAL HS PRN 08/31/15 [Last Taken 01/26/17] Capecitabine [Xeloda (*)] 1,000 mg PO BID 08/10/17 [Last Taken 08/09/17 21:00] Dexamethasone [Decadron 4 MG (*)] 4 mg PO BID PRN 08/10/17 [Last Taken 02/27/18] Ibuprofen [Motrin (*)] 200 mg PO DAILY PRN 08/10/17 [Last Taken Unknown] LORazepam [Ativan (*)] 0.5 mg PO HS 08/10/17 [Last Taken 08/09/17] Prochlorperazine Maleate [Compazine 10mg (*)] 10 mg PO Q4-6PRN PRN 08/10/17 [ Last Taken Unknown] guaiFENesin [Mucinex 600 MG (*)] 1,200 mg PO BID PRN 08/10/17 [Last Taken ] oxyCODONE/APAP 5/325 [Percocet 5/325 (*)] 1 - 2 tab PO Q4H PRN 08/10/17 [Last Taken Unknown] traMADol [Ultram 50 mg (*)] 50 mg PO Q4H PRN 08/10/17 [Last Taken 08/09/17] - Anes Hx Anes Hx: no prior problems - Smoking Hx Smoking Status: Never smoked - Family Anes Hx Family Hx Anesthesia Complications: NEG ANE Labs/Vital Signs - Labs Result Diagrams: 08/15/17 09:05 08/14/17 05:30 - Vital Signs Vital Signs: reviewed preoperatively; see RN documention for details Blood Pressure: 135/99 Heart Rate: 122 Respiratory Rate: 20 O2 Sat (%): 93 Height: 154.94 cm Weight: 90.718 kg ANE Physical Exam - Airway Neck exam: FROM Mallampati Score: Class 2 Mouth exam: normal dental/mouth exam - Pulmonary Pulmonary: no respiratory distress - Cardiovascular Cardiovascular: regular rate and rhythym - ASA Status ASA Status: III ANE Anesthesia Plan Anesthesia Plan: GA with mask
--- NOTE | 2017-08-15 11:37 | PDHPUP ---
History & Physical Update H&P update statement: This history and physical update is based on an assessment of the patient which was completed after admission or registration (within 24 hours), but prior to the surgery/procedure. H&P update: H&P reviewed & patient examined, no change in patient's condition since H&P completed, changes noted
[2017-08-15] MEDS ORDERED: PROPOFOL 200 MG/20 ML VIAL ONE (11:38)
[2017-08-15] MEDS ORDERED: METOPROLOL TARTRATE 25 MG TAB PO ONE (12:19)
--- NOTE | 2017-08-15 12:40 | PDCARTEE ---
CAR JOSE CAR JOSE: PROCEDURE: (1) ANESTHESIA GUIDED SEDATION (2) JOSE INDICATION: VERY POOR ECHO WINDOWS VIA SURFACE ECHO GIVEN IMPLANTS DETAILS: After consents were signed, the patient was positioned in the left lateral to facilitate ease of JOSE probe placement. Standard views were obtained. normal LVEF with moderate LVH noted. Trileaflet aortic valve with mild to moderate insufficiency noted. Grossly normal mitral valve. Normal left atrial chamber dimensions. Grossly normal tricuspid valve. Grossly normal pulmonic valve. There appeared to be impingement to the right atrium (? mass). Small pericardial effusion without tamponade physiology noted. no complications were appreciated.
[2017-08-15] MEDS: ONDANSETRON 4 MG/2 ML VIAL IVP PRN (13:43)
[2017-08-15] MEDS: ENOXAPARIN 40 MG/0.4 ML SYR SC SCH (14:51)
--- NOTE | 2017-08-15 16:05 | ASMTCMCOM ---
CM Note CM Note Notes: Spoke with pt today regarding support at home and whether she feels she needs more. She has her daughter and daughter in law to assist her and feels that is enough support. In the afternoon, her RN asked CM to see pt as she was upset over not being able to go home and frustrated at her situation. Spoke with her again and she stated she was sorry she had gotten angry - we discussed her frustration and pt understands the staff has her best interests in mind. Pt requested a digital photographer - CM clarice Perera in Spiritual [facility]. Pt is s/p JOSE and anticipate she will d/c with no CM needs. Date Signed: 08/15/2017 04:05 PM Electronically Signed By:ANAI Sewell
--- NOTE | 2017-08-15 16:16 | ECHO ---
[email or web address] [address] [address] Main: [phone] Fax: Transesophageal Echocardiography Name: BERTA AQUINO MR#: [id number] Study Date: 08/15/2017 Study Time: 11:41 AM Date of : 1970 Age: 46 year(s) Height: ( ) Weight: ( ) BSA: Gender: Female Examination: JOSE Indication: Eval for Pericardial Effusion Image Quality: Contrast: Requested by: Derek Wong Heart Rate: Rhythm: BP: / Procedure Staff Bellows Charger Assembler: Terrance Willams RDCS Reading Physician: Devon Patel MD Requesting Provider: JOSE Exam Details Conclusions: Normal size left ventricle. Mild to moderate LVH. Normal global systolic LV function. No regional wall motion abnormality. Normal size right ventricle. The left atrium is normal in size. There appears to be external compression of the Right atrium and right venticle.. The mitral valve is normal in appearance and function. Mild to moderate aortic valve regurgitation. The tricuspid valve appears normal. The pulmonic valve is normal in appearance and function. The aorta is normal. Small pericardial effusion. No echocardiographic evidence of hemodynamic compromise. Measurements: Chambers Valvular Assessment AV/MV Valvular Assessment TV/PV Normal Normal Normal Name Value Range Name Value Range Name Value Range Additional Measurements: Patient: BERTA AQUINO Study Date: 08/15/2017 Page 1 of 2 11:41 AM Findings: Left Ventricle: Normal size left ventricle. Mild to moderate LVH. Normal global systolic LV function. No regional wall motion abnormality. Right Ventricle: Normal size right ventricle. Normal RV function. Left Atrium: The left atrium is normal in size. Right Atrium: There appears to be external compression of the Right atrium and right venticle.. Mitral Valve: The mitral valve is normal in appearance and function. There is no mitral valve regurgitation. Aortic Valve: The aortic valve is tri-leaflet. Mild to moderate aortic valve regurgitation. Tricuspid Valve: The tricuspid valve appears normal. Pulmonic Valve: The pulmonic valve is normal in appearance and function. Aorta: The aorta is normal. Pericardium: Small pericardial effusion. No echocardiographic evidence of hemodynamic compromise. l1n (No Signature Object) Patient: EBRTA AQUINO Study Date: 08/15/2017 Page 2 of 2 11:41 AM [id number]
[2017-08-15] MEDS: PROMETHAZINE HCL 25 MG/ML INJ IVP PRN (17:07)
--- NOTE | 2017-08-15 17:54 | HOSPPROG ---
Hospitalist Progress Note Assessment/Plan: #Acute hypoxic resp failure: now on room air. I don't think her presentation was an asthma exacerbation. CTA neg for PE. Elevated right hemidiaphragm is causing marked compressive atelectasis. -d/c'd prednisone and nebs #Hypertensive urgency: +JUAREZ. Prior echo: +LVH, nl EF. -cont losartan, up-titrate metoprolol -susan stress today neg for ischemia #Abnormal EKG with new Q waves. Trops neg. Susan neg. -Rpt echo here neg for WMA, +LVH and pericardial effusion #Pericardial effusion: difficult to guage size via TTE due to artifact from breast implants. -JOSE this am: small effusion, no tamponade. suspect malignant effusion. no indication for pericardiocentesis at this time #Elevated right hemidiaphragm: suspect nerve palsy, ?from radiation. This seems to be causing cardiopulmonary compromise with compressive atelectasis and pressure on right atrium. -discussed with surgery, no indication for surgical intervention #Tachycardia: Sinus. CTA neg for PE. Hasn't improved with IVF's or discontinuation of prednisone. HR up to 140's with ambulation and pt dizzy with ambulation. Possibly related to above. -up-titrate metoprolol #Leukocytosis: Suspect due to stress response/steroids, trending down off prednisone. UA neg. No e/o PNA. PCT low risk. BCx's neg. -d/c'd ceftriaxone #Lactic acidosis: trended down, then back up, infectious etiology seems unlikely with PCT 0.12. Could be related to nebs. -repeat lactate down to 2.7. Pt appears non-toxic, will stop following #Metastatic breast cancer: Diagnosed 2013, see onc note for details. S/P radiation, chemo, b/l mastectomy with implants. Had recurrence, now on palliative chemo. -discussed case with Dr. Mortensen, appreciate onc consult -holding Xeloda as this could be contributing to pericardial effusion per onc #Diet: Low sodium #Disp: cont inpt. Home likely in 1-2 days when HR improved and able to safely ambulate without significant symptoms Subjective: Pt having some nausea and anxiety today. Gets dizzy and tachycardic with ambulation. No CP at rest, a bit SOB. No fevers. Eating fairly well, now on low sodium diet, which has helped BP. Objective: Vital Signs Temp Pulse Resp BP Pulse Ox 36.7 C 110 H 20 128/90 H 94 08/15/17 13:17 08/15/17 13:17 08/15/17 13:17 08/15/17 13:17 08/15/17 13:17 Microbiology 08/13/17 05:00 Urine Culture - Final Unspecified [place] Types Laboratory Results 08/15/17 09:05 08/14/17 05:30 08/14/17 08/15/17 08/16/17 05:59 05:59 05:59 Intake Total 1575 2540 Output Total 2 Balance 1573 2540 - Physical Exam Constitutional: no apparent distress Eyes: PERRL Ears, Nose, Mouth, Throat: moist mucous membranes Cardiovascular: regular rate and rhythym Respiratory: no respiratory distress, reduced air movement Skin: warm Musculoskeletal: full muscle strength Neurologic: AAOx3 Psychiatric: interacting appropriately ICD10 Worksheet Patient Problems: Problems Problem Status Onset Chest pain Acute Left nephrolithiasis Acute Tachycardia Acute
[2017-08-15] MEDS: hydrALAZINE 20 MG/ML VIAL IVP PRN (19:20)
[2017-08-15] MEDS: IBUPROFEN 200 MG TAB PO PRN (19:46)
--- NOTE | 2017-08-15 20:01 | HOSPPROG ---
Hospitalist Progress Note Assessment/Plan: Cross-cover Called to bedside by RN for tachycardia. [place] nauseated, dry heaves. HR 145-150s S: c/o dizziness. No CP, no palpitations. Back when lying on back. Not in pain, not anxious PE: BP 148/74, HR 140, RR 16, 95%RA Gen: sitting up in bed, NAD HEENT: PERRLA, MMM CV: tachy, regular Lungs: decreased BS right mid-lung to base, good air movement upper lung GI: soft, NT, ND, +BS : no sam or CVA TTP [place]: moving all 4 extrem Psych: A&O x 3, not anxious #Tachycardia: STAT EKG. Negative CTA, no e/o infection. H/H stable -per review of notes and imaging. Has pronounced elevated right hemidiaphragm with pressure on right atrium. Mild pericardial effusion on echo today -BP stable -Improved with evening dose BB Critical care time spent: 30 min bedside with patient, reviewing EKGs, and imaging Objective: Vital Signs Temp Pulse Resp BP Pulse Ox 37.1 C 143 H 22 H 148/75 H 93 08/15/17 19:15 08/15/17 19:46 08/15/17 19:15 08/15/17 19:46 08/15/17 19:15 Microbiology 08/13/17 05:00 Urine Culture - Final Unspecified Two [place] Types Laboratory Results 08/15/17 09:05 08/14/17 05:30 08/14/17 08/15/17 08/16/17 05:59 05:59 05:59 Intake Total 1573 2540 Output Total 2 Balance 1573 2540 ICD10 Worksheet Patient Problems: Problems Problem Status Onset Chest pain Acute Left nephrolithiasis Acute Tachycardia Acute
--- NOTE | 2017-08-15 20:07 | SOAPPROG ---
SOAP Progress Note Assessment/Plan: Assessment: stopped by to see rahat as a courtesy Rahat is a shin 46 year old woman well known to me with metastatic breast cancer She has shortness of breath and her CT scan is quite impressive as the r hemidiagphram is elevated and likely pressing on the right atrium Although she is short of breath, her O2 sat is 94% I described the findings to Rahat Unfortunately, there is not a surgical procedure to alleviate this problem I discussed the case with Dr. Petty I advised Rahat that she may be transferred upstairs if her symptoms don't improve I called her daughter and left a message at Anas request Plan: 08/15/17 20:04 Objective: Vital Signs Temp Pulse Resp BP Pulse Ox 37.1 C 143 H 22 H 148/75 H 93 08/15/17 19:15 08/15/17 19:46 08/15/17 19:15 08/15/17 19:46 08/15/17 19:15 Microbiology 08/13/17 05:00 Urine Culture - Final Unspecified Two [place] Types Laboratory Results 08/15/17 09:05 08/14/17 05:30 08/14/17 08/15/17 08/16/17 05:59 05:59 05:59 Intake Total 1575 2540 Output Total 2 Balance 1573 2540 ICD10 Worksheet Patient Problems: Problems Problem Status Onset Chest pain Acute Left nephrolithiasis Acute Tachycardia Acute
--- NOTE | 2017-08-15 20:27 | CPEKG ---
Heart Rate: 111 RR Interval: 541 P-R Interval: 136 QRSD Interval: 80 QT Interval: 340 QTC Interval: 462 P [place]: 37 QRS [place]: 33 T Wave [place]: 66 EKG Severity - ABNORMAL ECG - EKG Impression: SINUS TACHYCARDIA EKG Impression: PROBABLE INFERIOR INFARCT, OLD Electronically Signed By: Devon Manzo 16-Aug-2017 11:45:54
[2017-08-15] MEDS: LORazepam 0.5 MG TAB PO PRN (22:12)
[2017-08-16] MEDS: OXYCODONE/APAP 5/325 TAB PO PRN ×2 (00:26→11:51)
[2017-08-16] MEDS: PROMETHAZINE HCL 25 MG/ML INJ IVP PRN (03:50)
[2017-08-16] MEDS: ONDANSETRON 4 MG/2 ML VIAL IVP PRN ×2 (08:07→17:38)
--- NOTE | 2017-08-16 09:59 | HOSPPROG ---
Hospitalist Progress Note Assessment/Plan: # acute hypoxic resp failure - still dyspneic and tachypenic but on RA - off steroids and abx # extrinsic R atrium and ventricle compression d/t diaphragmatic elevation - may be underlying cause of presentation - Dr Martinez considering plication to create space # tachycardia - possibly related to R sided heart compromise - has been stable, follow and check TSH # hypertensive urgency - resolved, on losartan and metop - consider start norvasc # pericardial effusion - small, no evidence of tamponade physiology on echo # leukocytosis - better, recheck tomorrow; off abx # lactic acidosis - better, likely hypoperfusion rather than sepsis # metastatic breast cancer s/p chemo, radiation, mastectomy and bilateral breast implants - currently on palliative chemo - holding Xeloda with pericardial effusion # abnormal Q waves on ecg - nuc stress negative, echo without WMA, trops neg # dvt ppx - lovenox Subjective: ongoing tachycardia overnight; no CP; Objective: Vital Signs Temp Pulse Resp BP Pulse Ox 36.6 C 123 H 18 161/98 H 97 08/16/17 07:20 08/16/17 07:20 08/16/17 07:20 08/16/17 07:20 08/16/17 07:20 Microbiology 08/13/17 05:00 Urine Culture - Final Unspecified Two [place] Types Laboratory Results 08/15/17 09:05 08/14/17 05:30 08/15/17 08/16/17 08/17/17 05:59 05:59 05:59 Intake Total 2540 500 Output Total 250 Balance 2540 250 chart reviewed CXR and CTA personally reviewed echo reviewed - Physical Exam Constitutional: no apparent distress, appears nourished Cardiovascular: no murmur, rub, or gallop, tachycardia Respiratory: no respiratory distress, no rales or rhonchi, other (diminished R sided BS) Gastrointestinal: soft, non-tender abdomen, no palpable masses ICD10 Worksheet Patient Problems: Problems Problem Status Onset Left nephrolithiasis Acute Tachycardia Acute Chest pain Acute
[2017-08-16] MEDS: METOPROLOL TARTRATE 25 MG TAB PO SCH ×2 (10:21→22:14)
[2017-08-16] MEDS: ENOXAPARIN 40 MG/0.4 ML SYR SC SCH (10:21)
[2017-08-16] MEDS: LOSARTAN POTASSIUM 25 MG TAB PO SCH (10:21)
--- NOTE | 2017-08-16 13:39 | SOAPPROG ---
SOAP Progress Note Assessment/Plan: Assessment: 1) Metastatic breast cancer 2) Small pericardial effusion without Tamponade 3) Right Atrial compromise secondary to Elevated Right hemidiaphragm 3) Elevated Right hemidiaphragm likely due to phrenic nerve injury from malignancy versus XRT Plan: Case d/w Dr Martinez. Patient appears to have Right atrial compromise secondary to elevated Right hemidiaphragm. I suspect this is due to phrenic nerve injury from malignancy or her prior XRT. A palliative diaphragm plication could be attempted. The patient is inclined to pursue this and will discuss in more detail with Dr. Martinez. Continue to hold Xeloda for now. Her pericardial effusion is small, and does not require interventions. Her questions were answered. 08/16/17 13:33 Subjective: Continues to require O2. Denies chest pain or SOB at rest. Friend at bedside. Objective: Vital Signs Temp Pulse Resp BP Pulse Ox 36.8 C 96 16 133/88 H 97 08/16/17 11:05 08/16/17 11:05 08/16/17 11:05 08/16/17 11:05 08/16/17 11:05 Microbiology 08/13/17 05:00 Urine Culture - Final Unspecified Two [place] Types Laboratory Results 08/15/17 09:05 08/14/17 05:30 08/15/17 08/16/17 08/17/17 05:59 05:59 05:59 Intake Total 2540 500 Output Total 250 Balance 2540 250 - Time Spent With Patient Time Spent With Patient: 25 minutes Physical Exam - Physical Exam General Appearance: alert, no apparent distress EENT: PERRL/EOMI Respiratory: other (Lung sounds decreased Right base) Cardiac/Chest: other (Mild tachycardia. No murmur) Abdomen: non-tender, soft Neuro/Psych: alert, normal mood/affect ICD10 Worksheet Patient Problems: Problems Problem Status Onset Chest pain Acute Left nephrolithiasis Acute Tachycardia Acute
[2017-08-16] MEDS: IBUPROFEN 200 MG TAB PO PRN (17:51)
--- NOTE | 2017-08-16 20:24 | PDCONSULT ---
Aeronautical Inspector Note: Cardiology was initially requested to read a surface echo. History of breast cancer with prosthesis made visualization of the myocardium very difficult. Overall, it was felt that the patient had grossly normal systolic function. It was uncertain on the degree of pericardial effusion, and with cancer history, further information was needed. JOSE was discussed with the patient, and ultimately accepted as a more invasive, yet non nuclear option to assess systolic function and better delineate the pericardial fluid volume. JOSE was performed yesterday with notable deviation of the heart location leftward. No significant pericardial effusion was noted. Mild to moderate left ventricular hypertrophy was noted. A chemo port was also appreciated, and there were some concerns given the angulation of the heart in the chest and the location of the port. Normal systolic function was noted. There was mild to moderate aortic insufficiency appreciated. No clear pathology to account for the accelerated heart rate was noted, other than mass effect from very elevated right hemidiaphragm as well as enlargement of the liver. Today on telemetry, a short run of non sustained VT was noted. Initial concerns were mass effect to heart, impingement of superior vena cava, as well as location of the port (which has changes as the patients heart has been pushed further to the left). Given age and lack of well defined cardiovascular risks, the likelihood of critical CAD in this patient is very low. Discussion have reportedly started about surgical intervention to the mass effects that are being noted. Cardiology will continue to follow this patient while in house.
[2017-08-17] MEDS: LORazepam 0.5 MG TAB PO PRN ×2 (02:54→19:33)
[2017-08-17] MEDS: ONDANSETRON 4 MG/2 ML VIAL IVP PRN ×4 (05:06→19:32)
[2017-08-17 05:37] LABS: PLATELET COUNT 214 10^3/uL (150-400)
[2017-08-17] MEDS: METOPROLOL TARTRATE 25 MG TAB PO SCH ×2 (08:28→19:36)
[2017-08-17] MEDS: LOSARTAN POTASSIUM 25 MG TAB PO SCH (08:30)
[2017-08-17] MEDS: ENOXAPARIN 40 MG/0.4 ML SYR SC SCH (08:30)
[2017-08-17] MEDS ORDERED: CAPECITABINE 500 MG TAB PO SCH (09:00)
[2017-08-17] MEDS: OXYCODONE/APAP 5/325 TAB PO PRN ×2 (11:50→22:09)
--- NOTE | 2017-08-17 12:23 | HOSPPROG ---
Hospitalist Progress Note Assessment/Plan: # acute hypoxic resp failure - still dyspneic and tachypenic but on RA - off steroids and abx # extrinsic R atrium and ventricle compression d/t diaphragmatic elevation - likely the underlying cause of presentation - Dr Martinez considering plication to create space # tachycardia - possibly related to R sided heart compromise - has been stable, follow and check TSH # NSVT - short run yesterday - likely d/t intrinsic cardiac compression; keep on tele # hypertensive urgency - resolved, on losartan and metop # pericardial effusion - small, no evidence of tamponade physiology on echo # leukocytosis - worse today; suspect more related to stress than infection; follow again tomorrow # lactic acidosis - better, likely hypoperfusion rather than sepsis # metastatic breast cancer s/p chemo, radiation, mastectomy and bilateral breast implants - currently on palliative chemo - holding Xeloda with pericardial effusion # abnormal Q waves on ecg - nuc stress negative, echo without WMA, trops neg # dvt ppx - lovenox Subjective: feels very SOB today; seen with her sister Objective: Vital Signs Temp Pulse Resp BP Pulse Ox 37.1 C 113 H 16 124/86 H 98 08/17/17 11:48 08/17/17 11:48 08/17/17 11:48 08/17/17 11:48 08/17/17 11:48 Microbiology 08/11/17 19:20 Blood Culture - Final Blood 08/11/17 19:00 Blood Culture - Final Blood Laboratory Results 08/17/17 05:15 08/17/17 05:15 08/16/17 08/17/17 08/18/17 05:59 05:59 05:59 Intake Total 500 900 Output Total 250 Balance 250 900 high risk - Physical Exam Constitutional: uncomfortable Cardiovascular: no murmur, rub, or gallop, tachycardia Respiratory: no rales or rhonchi, respiratory distress (mod), other (tachypneic) Gastrointestinal: soft, non-tender abdomen, no palpable masses ICD10 Worksheet Patient Problems: Problems Problem Status Onset Left nephrolithiasis Acute Tachycardia Acute Chest pain Acute
--- NOTE | 2017-08-17 12:46 | PDCONSULT ---
Field Administrator Note: No cardiovascular complaints this morning. Patient feeling reasonably well. No chest pains or pressure. Ongoing work to determine surgical options given the right hemidiaphragm and the liver size/location. Patient with questions today about (a) when or if oral chemotherapy would be resumed and (b) if the port is not being used, could it be removed (this is possibly causing some of the irritability that has been noted. No further cardiac testing or studies are currently indicated. We can follow patient as needed.
--- NOTE | 2017-08-17 13:37 | SOAPPROG ---
SOAP Progress Note Assessment/Plan: Assessment: stopped by to see rahat as a courtesy Rahat is a shin 46 year old woman well known to me with metastatic breast cancer She has shortness of breath and her CT scan is quite impressive as the r hemidiagphram is elevated and likely pressing on the right atrium Will proceed with davinici plication of diaphragm tomorrow NPO midnight Discussed with Rahat Risk and benefits discussed S: Still short of breath O: General: Pleasant, well-nourished and well-groomed woman lying in bed HENT: Normocephalic, no gross hearing deficits, mucous membranes moist, pupils equal and round, no scleral icterus Lungs: Clear to auscultation bilaterally, No breath sounds R lower lung Cardiac: Regular rate, no peripheral edema Abdomen: Bowel sounds present, soft and nontender. Plan: 08/15/17 20:04 08/17/17 13:1 Objective: Vital Signs Temp Pulse Resp BP Pulse Ox 37.1 C 113 H 16 124/86 H 98 08/17/17 11:48 08/17/17 11:48 08/17/17 11:48 08/17/17 11:48 08/17/17 11:48 Microbiology 08/11/17 19:20 Blood Culture - Final Blood 08/11/17 19:00 Blood Culture - Final Blood Laboratory Results 08/17/17 05:15 08/17/17 05:15 08/16/17 08/17/17 08/18/17 05:59 05:59 05:59 Intake Total 500 900 Output Total 250 Balance 250 900 ICD10 Worksheet Patient Problems: Problems Problem Status Onset Chest pain Acute Left nephrolithiasis Acute Tachycardia Acute
[2017-08-17] MEDS: PROMETHAZINE HCL 25 MG/ML INJ IVP PRN (18:04)
[2017-08-17] MEDS: ONDANSETRON DISINTEGRATING 4 MG TAB PO PRN (22:09)
[2017-08-18] MEDS: ONDANSETRON 4 MG/2 ML VIAL IVP PRN (03:31)
[2017-08-18] MEDS: OXYCODONE/APAP 5/325 TAB PO PRN ×2 (03:31→05:10)
[2017-08-18 03:52] LABS: PLATELET COUNT 223 10^3/uL (150-400)
[2017-08-18] MEDS: ONDANSETRON DISINTEGRATING 4 MG TAB PO PRN ×2 (05:10→22:13)
[2017-08-18] MEDS ORDERED: ceFAZolin 2 GM/SWFI 2 GM/20 ML SYR IVP ONE (07:38)
[2017-08-18] MEDS: METOPROLOL TARTRATE 25 MG TAB PO SCH ×2 (08:20→20:41)
[2017-08-18] MEDS: LOSARTAN POTASSIUM 25 MG TAB PO SCH (08:20)
[2017-08-18] MEDS: LORazepam 0.5 MG TAB PO PRN (08:34)
[2017-08-18] MEDS: PROMETHAZINE HCL 25 MG/ML INJ IVP PRN ×2 (08:39→12:58)
[2017-08-18] MEDS ORDERED: BUPIVACAINE 0.5% 10 ML SDV ONE (08:51)
--- NOTE | 2017-08-18 10:19 | PDANEPAE ---
ANE Past Medical History - Cardiovascular History Hx Hypertension: Yes Hx Arrhythmias: No Hx Chest Pain: No Hx Coronary Artery / Peripheral Vascular Disease: No Hx CHF / Valvular Disease: No Hx Palpitations: No - Pulmonary History Hx COPD: No Hx Asthma/Reactive Airway Disease: Yes Hx Recent Upper Respiratory Infection: No Hx Oxygen in Use at Home: No Hx Sleep Apnea: No Sleep Apnea Screening Result - Last Documented: Negative Pulmonary History Comment: ASTHMA - INHALER - Neurologic History Hx Cerebrovascular Accident: No Hx Seizures: No Hx Dementia: No - Endocrine History Hx Diabetes: No Hypothyroid: No Hyperthyroid: No Obesity: moderate - Renal History Hx Renal Disorders: Yes Renal History Comment: KIDNEY STONES - Liver History Hx Hepatic Disorders: No - Neurological & Psychiatric Hx Hx Neurological and Psychiatric Disorders: No - Cancer History Hx Cancer: Yes Cancer History Comment: BREAST CA DX 2013, CHEMO. w/ Mets to Lungs - Congenital Disorder History Hx Congenital Disorders: No - GI History Hx Gastrointestinal Disorders: No - Other Health History Other Health History: ECZEMA - Chronic Pain History Chronic Pain: No - Surgical History Prior Surgeries: R axilla- excision mass - 2015;. CSECTION X 3. HYSTERECTOMY. LITHROTRIPSY. B MASTECTOMY 2013. BREAST RECONST SURG/IMPLANTS 2015. STONE REMOVAL 08/2015 & 10/2015 ANE Review of Systems Review of Systems: ANE Patient History - Allergies Allergies/Adverse Reactions: hydrocodone bitartrate [From Vicodin] Allergy (Verified 08/10/17 10:06) Other-Enter Comments Sulfa (Sulfonamide Antibiotics) Allergy (Verified 08/10/17 10:06) Swelling/neck,face,throat - Home Medications Home Medications: Albuterol [Proventil Inhaler HFA (*)] 2 puffs IH Q4 PRN 08/31/15 [Last Taken 06/29] Fluticasone Nasal [Flonase Nasal [place]] 2 sprays NASAL HS PRN 08/31/15 [Last Taken 01/26/17] Capecitabine [Xeloda (*)] 1,000 mg PO BID 08/10/17 [Last Taken 08/09/17 21:00] Dexamethasone [Decadron 4 MG (*)] 4 mg PO BID PRN 08/10/17 [Last Taken 08/08/17] Ibuprofen [Motrin (*)] 200 mg PO DAILY PRN 08/10/17 [Last Taken Unknown] LORazepam [Ativan (*)] 0.5 mg PO HS 08/10/17 [Last Taken 08/09/17] Prochlorperazine Maleate [Compazine 10mg (*)] 10 mg PO Q4-6PRN PRN 08/10/17 [ Last Taken Unknown] guaiFENesin [Mucinex 600 MG (*)] 1,200 mg PO BID PRN 08/10/17 [Last Taken ] oxyCODONE/APAP 5/325 [Percocet 5/325 (*)] 1 - 2 tab PO Q4H PRN 08/10/17 [Last Taken Unknown] traMADol [Ultram 50 mg (*)] 50 mg PO Q4H PRN 08/10/17 [Last Taken 08/09/17] - NPO status NPO Since - Liquids (Date): 08/17/17 NPO Since - Liquids (Time): 23:35 NPO Since - Solids (Date): 08/17/17 NPO Since - Solids (Time): 18:00 - Anes Hx Anes Hx: no prior problems - Smoking Hx Smoking Status: Never smoked - Family Anes Hx Family Hx Anesthesia Complications: NEG ANE Labs/Vital Signs - Labs Result Diagrams: 08/18/17 03:40 08/18/17 03:40 - Vital Signs Blood Pressure: 122/79 Heart Rate: 124 Respiratory Rate: 18 O2 Sat (%): 97 Height: 154.94 cm Weight: 90.718 kg ANE Physical Exam - Airway Neck exam: decreased ROM Mallampati Score: Class 3 Mouth exam: normal dental/mouth exam - Pulmonary Pulmonary: no respiratory distress, no rales or rhonchi - Cardiovascular Cardiovascular: tachycardia - ASA Status ASA Status: III ANE Anesthesia Plan Anesthesia Plan: general endotracheal anesthesia
[2017-08-18] MEDS ORDERED: fentaNYL 100 MCG/2 ML INJ ONE (10:21)
[2017-08-18] MEDS ORDERED: PROPOFOL 200 MG/20 ML VIAL ONE (10:21)
[2017-08-18] MEDS ORDERED: ROCURONIUM 50 MG/5 ML VIAL ONE (10:23)
[2017-08-18] MEDS ORDERED: LIDOCAINE 2% 5 ML SDV ONE (10:23)
[2017-08-18] MEDS ORDERED: PHENYLEPHRINE HCL 100 MCG/ML SYR ONE (10:41)
[2017-08-18] MEDS ORDERED: fentaNYL 250 MCG/5 ML INJ ONE (11:17)
[2017-08-18] MEDS ORDERED: DEXAMETHASONE 4 MG/ML VIAL ONE (11:33)
[2017-08-18] MEDS ORDERED: ONDANSETRON 4 MG/2 ML VIAL ONE (11:33)
[2017-08-18] MEDS ORDERED: SUGAMMADEX SODIUM 200 MG/2 ML VIAL IVP ONE (11:37)
[2017-08-18] MEDS ORDERED: NALOXONE HCL 0.4 MG/ML INJ IVP PRN ×2 (11:39→14:56)
[2017-08-18] MEDS ORDERED: fentaNYL 100 MCG/2 ML INJ IVP PRN (11:39)
[2017-08-18] MEDS ORDERED: ONDANSETRON 4 MG/2 ML VIAL IVP PRN (11:39)
[2017-08-18] MEDS ORDERED: ALBUTEROL 3 ML DEYVIAL IH PRN (11:39)
[2017-08-18] MEDS ORDERED: PROMETHAZINE HCL 25 MG/ML INJ IVP PRN (11:39)
[2017-08-18] MEDS ORDERED: LR 500 ML IV PRN (11:39)
--- NOTE | 2017-08-18 12:00 | POSTOPPROG ---
Post Op Note Date of Operation: 08/18/17 Surgeon: Dilia Martinez Cobbler Sole: joselyn Anesthesiologist: gaye Anesthesia: GET(General Endotracheal) Pre-op Diagnosis: elevated R hemidiaphragm Post-op Diagnosis: same, massive hepatomegaly Indication: 46yo F with stage IV breast ca, elevated R hemidiaphragm compressing RA Procedure: exploratory laparoscopy Findings: hepatomegaly with replacement by mets, unable to visualize R hemidiaphragm Inf/Abcess present in the surg proc area at time of surgery?: No EBL: Minimal
--- NOTE | 2017-08-18 12:10 | ASMTCMCOM ---
CM Note CM Note Notes: CM spoke w/ Mo, RN regarding d/c POC. Pt is have an exploratory laparoscopy today. Kathy from [facility] met w/ pt yesterday [facility]. DC plans are unclear at this time. It is uncertain what pt will need post surgery. CM to follow. Plan: TBD Date Signed: 08/18/2017 12:09 PM Electronically Signed By:RABIA Azevedo
[2017-08-18] MEDS ORDERED: NALOXONE HCL 0.4 MG/ML INJ ONE (12:26)
[2017-08-18] MEDS ORDERED: PROMETHAZINE HCL 25 MG/ML INJ ONE (12:32)
--- NOTE | 2017-08-18 12:55 | POSTANESTH ---
Post Anesthetic Evaluation Cardiovascular Status: Similar to Pre-Op Cond Respiratory Status: Similar to Pre-op Cond. Level of Consciousness/Mental Status: Can Participate in Eval, Mildly Sleepy, Arousable Pain Control: Adequate, Prn Tx Ordered Nausea/Vomiting Control: Inadeq, Add Tx Reqired Complications Possibly Related to Anesthesia: None Noted
[2017-08-18] MEDS ORDERED: morphINE 10 MG/0.5 ML UDSYR PO PRN (14:56)
[2017-08-18] MEDS ORDERED: HYDROmorphONE/DILAUDID 6 MG/30 ML PCA IV PRN (14:56)
--- NOTE | 2017-08-18 15:02 | HOSPPROG ---
Hospitalist Progress Note Assessment/Plan: # acute hypoxic resp failure - still dyspneic and tachypenic but on RA - off steroids and abx - likely d/t R sided cardiac compression # extrinsic R atrium and ventricle compression d/t diaphragmatic elevation - plication impossible given extensive liver mets # tachycardia - d/t R heart compromise # NSVT - short run - likely d/t intrinsic cardiac compression; keep on tele # hypertensive urgency - resolved, on losartan and metop # pericardial effusion - small, no evidence of tamponade physiology on echo # leukocytosis - worse today; suspect more related to stress than infection; follow again tomorrow # lactic acidosis - better, likely hypoperfusion rather than sepsis # metastatic breast cancer s/p chemo, radiation, mastectomy and bilateral breast implants - currently on palliative chemo - holding Xeloda with pericardial effusion - to discuss treatment options tomorrow with Dr White # abnormal Q waves on ecg - nuc stress negative, echo without WMA, trops neg # dvt ppx - lovenox # dispo - family would like to take her home soon; they are considering discontinuing treatment entirely Subjective: went to OR this morning - given extensive liver mets, diaphragmatic plication was not possible; discused with Owen Martinez and Festus; patient seein with many family members present Objective: Vital Signs Temp Pulse Resp BP Pulse Ox 37.2 C 113 H 19 118/68 99 08/18/17 13:55 08/18/17 13:55 08/18/17 13:55 08/18/17 13:55 08/18/17 13:55 Microbiology 08/11/17 19:20 Blood Culture - Final Blood 08/11/17 19:00 Blood Culture - Final Blood Laboratory Results 08/18/17 03:40 08/18/17 03:40 08/17/17 08/18/17 08/19/17 05:59 05:59 05:59 Intake Total 900 250 800 Output Total 300 620 Balance 900 -50 180 - Time Spent With Patient Time Spent with Patient: greater than 35 minutes Time Spent with Patient: Greater than 35 minutes spent on this patients care, greater than 50% of time spent counseling, educating, and coordinating care regarding the above mentioned plan. - Physical Exam Constitutional: uncomfortable ICD10 Worksheet Patient Problems: Problems Problem Status Onset Left nephrolithiasis Acute Tachycardia Acute Chest pain Acute
[2017-08-19] MEDS: LORazepam 0.5 MG TAB PO PRN (00:22)
[2017-08-19] MEDS ORDERED: MICONAZOLE NITRATE 15 GM CRTUBE TP PRN (00:58)
[2017-08-19 08:52] LABS: PLATELET COUNT 197 10^3/uL (150-400)
[2017-08-19] MEDS: METOPROLOL TARTRATE 25 MG TAB PO SCH (09:12)
[2017-08-19] MEDS: LOSARTAN POTASSIUM 25 MG TAB PO SCH (09:14)
[2017-08-19] MEDS: IBUPROFEN 200 MG TAB PO PRN (09:31)
--- NOTE | 2017-08-19 10:53 | SOAPPROG ---
SOAP Progress Note Assessment/Plan: Assessment: 1. Metastatic breast cancer, ER+, her2- 2. Rapid progression of hepatic metastases 3. R hemidiaphragm elevation due to #2. I discussed the prognosis with Shannon. Her tumor has shown explosive growth in the liver (tumor marker increased 10x over the course of the month). Further chemotherapy is very unlikely to result in a meaningful response and would likely have burdensome side effects. Under the circumstances, hospice care is most appropriate. She is in agreement. She has a supportive family and will stay at her mother's. I estimate her prognosis as a matter of weeks. 40 min spent w/ pt, family, and in coordination of care. Plan: 08/19/17 10:49 Objective: Vital Signs Temp Pulse Resp BP Pulse Ox 37.1 C 138 H 19 104/76 96 08/19/17 07:36 08/19/17 09:12 08/19/17 07:36 08/19/17 09:14 08/19/17 07:36 Laboratory Results 08/19/17 08:30 08/19/17 08:30 08/18/17 08/19/17 08/20/17 05:59 05:59 06:59 Intake Total 250 1489 Output Total 300 622 150 Balance -50 867 -150 ICD10 Worksheet Patient Problems: Problems Problem Status Onset Chest pain Acute Left nephrolithiasis Acute Tachycardia Acute
--- NOTE | 2017-08-19 11:14 | SOAPPROG ---
SOAP Progress Note Assessment/Plan: Assessment: 46-YEAR-OLD FEMALE WITH METASTATIC BREAST CANCER COMFORTABLE TODAY AFTER LAPAROSCOPY AND WANTS TO GO HOME/TOLERATING DIET ABDOMEN SOFT/ WOUNDS OKAY/AFEBRILE PROGNOSIS GUARDED Plan: HOME TODAY WITH HOSPICE CONSULTATION 08/19/17 11:12 Objective: Vital Signs Temp Pulse Resp BP Pulse Ox 37.1 C 138 H 19 104/76 96 08/19/17 07:36 08/19/17 09:12 08/19/17 07:36 08/19/17 09:14 08/19/17 07:36 Laboratory Results 08/19/17 08:30 08/19/17 08:30 08/18/17 08/19/17 08/20/17 05:59 05:59 06:59 Intake Total 250 1489 Output Total 300 622 150 Balance -50 867 150 ICD10 Worksheet Patient Problems: Problems Problem Status Onset Chest pain Acute Left nephrolithiasis Acute Tachycardia Acute
[2017-08-19 11:57] VITALS: BP 88/57; PULSE 114; RESP 14; TEMP 98.7; O2SAT 99
--- NOTE | 2017-08-19 12:29 | ASMTCMCOM ---
CM Note CM Note Notes: Chart reviewed. Patient elects to go home with hospice as soon as possible. Patient has large supportive family presence in her room. Referral to [facility] as her wish is to return home and then go to live with her mother in her final stages. They would like to get home today if possible. Awaiting return call from hospice CM to follow. Date Signed: 08/19/2017 12:28 PM Electronically Signed By:Lelo White RN
[2017-08-19] MEDS ORDERED: OXYCODONE/APAP 5/325 TAB PO PRN (12:51)
[2017-08-19] MEDS ORDERED: IBUPROFEN 200 MG TAB PO PRN (13:26)
--- NOTE | 2017-08-19 14:11 | GDS ---
[f rep st] DISCHARGE SUMMARY FINAL DIAGNOSES: 1. Acute hypoxic respiratory failure. 2. Extrinsic right atrium and right ventricle compression, likely due to diaphragmatic elevation fro m metastatic disease. 3. Tachycardia. 4. Nonsustained ventricular tachycardia. 5. Hypertensive urgency. 6. Pericardial effusion. 7. Leukocytosis. 8. Lactic acidosis. 9. Metastatic breast cancer. HOSPITAL COURSE: A 46-year-old female admitted with dyspnea. Imaging studies were most notable for a markedly elevated right hemidiaphragm, causing significant extrinsic compression on the right side of her heart. This was confirmed on CT of her chest, as well as transesophageal echocardiogram. She has been persistently tachycardiac, likely due to right heart compromise. She had an episode of non sustained ventricular tachycardia also likely due to this. She was seen by Dr. Martinez with [facility]. Dr. Martinez attempted to do a diaphragmatic plication to alleviate the extrinsic compression on her heart. Unfortunately, her metastatic breast cancer had markedly progressed to diffuse hepatic m etastatic disease, which markedly limited the ability to do this surgery. Surgery was aborted. She was seen by Dr. White, her primary oncologist. Because of all these issues and the rapid progress ion of her cancer, decision has been made to transition to hospice care. She has significant family assistance who will care for her well at home. She is being seen by [facility] right now. She has been given appropriate medications on discharge to control her pain, nausea, and anxiety. Her fo llowup will be with [facility]. BILLING: I spent more than 30 minutes on the day of discharge coordinating care. /[id number]/MODL
--- NOTE | 2017-08-19 14:20 | PDIAF ---
- Diagnosis Diagnosis: metastatic breast cancer Code Status: Full Code - Medication Management Discharge Medications: Medications to Continue on Transfer Fluticasone Nasal [Flonase Nasal [place]] 2 sprays NASAL HS PRN 08/31/15 [Last Taken 01/26/17] Albuterol [Proventil Inhaler HFA (*)] 2 puffs IH Q4 PRN #1 mdi 08/11/17 [Last Taken Unknown] predniSONE 40 mg PO DAILY #8 tablet 08/11/17 [Last Taken Unknown] Ibuprofen [Motrin (*)] 400 - 800 mg PO Q8 PRN tab 08/19/17 [Last Taken Unknown] LORazepam [Ativan (*)] 0.5 - 1 mg PO Q8H PRN #30 tab 08/19/17 [Last Taken Unknown] Metoprolol Tartrate [Lopressor 25 mg (*)] 25 mg PO BID #60 tab 08/19/17 [Last Taken Unknown] Miconazole Nitrate [Micatin 2% Cream (*)] 1 reji TP BID PRN cream 08/19/17 [ Last Taken Unknown] Promethazine HCl [Phenergan 25mg (*)] 25 mg PO Q8 #30 tab 08/19/17 [Last Taken Unknown] oxyCODONE/APAP 5/325 [Percocet 5/325 (*)] 1 - 2 tab PO Q4H PRN #30 tab 08/19/17 [Last Taken Unknown] Discharge Medications: Refer to the Discharge Home Medication list for PRN reason. - Orders Isolation Type: None Diet Recommendation: no restrictions on diet - Follow Up Care Current Providers and Referrals: Robin Oliveros MD [Primary Care Provider] - As per Instructions
--- NOTE | 2017-08-19 14:25 | ASMTCMCOM ---
CM Note CM Note Notes: Patient accepted to hospice, She will dc with family today. CM available should any other needs arise. Date Signed: 08/19/2017 02:24 PM Electronically Signed By:Lelo White RN
--- NOTE | 2017-08-19 14:38 | PDHOMEO2F ---
Home Oxygen Face to Face Home Orders: I certify that a physician or a nurse practitioner or physician's emergency room physician assistant has had a [id number] encounter with this patient on the date of this order due to the diagnosis listed, which relates to the primary reason the patient requires home oxygen. Alternative treatments have been tried, or considered, and deemed ineffective. It is anticipated that supplemental oxygen will result in improvement with treatment. Home oxygen qualifying diagnosis: metastatic breast cancer SpO2 on room air (%): 80 Frequency of home oxygen needed: continuous Home oxygen liters per minute: 2 Home oxygen delivery device: nasal cannula Concentrator: Yes E-tanks for mobility and back up: Yes If ordering portable O2, is the patient mobile in the home?: Yes I certify that, based on these findings, the home oxygen is medically necessary for this patient for the following length of time. Length of time home oxygen needed: 3 months
[2017-08-19] MEDS ORDERED: MICONAZOLE NITRATE 45 GM CRTUBE VG SCH (21:00)
[2017-08-19] MEDS ORDERED: MICONAZOLE NITRATE 200 MG VG SCH (21:00)
--- NOTE | 2017-08-20 18:02 | ASDISCHSUM ---
Discharge Information Plan Status:Hospice-Home Medically Cleared to Leave:08/18/2017 Discharge Date:08/19/2017 04:00 PM D/C Disposition:Hospice Home ADT D/C Disposition:Home, Routine, Self-Care Projected Discharge Date:08/19/2017 11:00 AM Transportation at D/C:Family Discharge Delay Reason: Follow-Up Date:08/19/2017 11:00 AM Discharge Slot: Final Diagnosis: Placement Information Referral Type:*Hospice Referral ID:[id number] Provider Name:[facility] Address 1:[address] Phone Number: Address 2: Fax Number: City:[place] Selection Factors: State:[place] Patient Contact Information Contact Name:FABIO Relationship:Sister Address: Work Phone: City: [facility] Phone: [facility] Code: Email: Financial Information Financial Class:[employer] Primary Plan Desc:[facility] Primary Plan Number:[id number] Secondary Plan Desc: Secondary Plan Number: Assessment Information LACE LACE Acuity / Level of Answers: No Care: Did the patient have an inpatient admission? Comorbidities - select Answers: Any tumor (including all that apply lymphoma or leukemia) # of Emergency department Answers: 1-2 visits in the last 6 months Score: 3 Date Signed: 08/10/2017 03:25 PM Electronically Signed By:Pat James RN [facility] CM Progress Note CM Note CM Note Notes: Chart reviewed for dc planning purposes. 46 year old female admitted via ED with fever, tachycardia and hypoxia. Likely viral per physician review. Do not anticipate discharge needs at this time. CM available should needs change. Date Signed: 08/11/2017 10:22 AM Electronically Signed By:Lelo White RN [facility] CM Progress Note CM Note CM Note Notes: Chart reviewed. Per hospital medicine patient to remain inpt for cardiac testing. Otherwise independent upon dc to home. CM available should needs arise. Date Signed: 08/14/2017 10:08 AM Electronically Signed By:Lelo White RN [facility] CM Progress Note CM Note CM Note Notes: Spoke with pt today regarding support at home and whether she feels she needs more. She has her daughter and daughter in law to assist her and feels that is enough support. In the afternoon, her RN asked CM to see pt as she was upset over not being able to go home and frustrated at her situation. Spoke with her again and she stated she was sorry she had gotten angry - we discussed her frustration and pt understands the staff has her best interests in mind. Pt requested a city library director - texted Dilma in [facility]. Pt is s/p JOSE and anticipate she will d/c with no CM needs. Date Signed: 08/15/2017 04:05 PM Electronically Signed By:ANAI Sewell [facility] CM Progress Note CM Note CM Note Notes: CM spoke w/ CATE Adam regarding d/c POC. Pt is have an exploratory laparoscopy today. Kathy from [facility] DC plans are unclear at this time. It is uncertain what pt will need post surgery. CM to follow. Plan: TBD Date Signed: 08/18/2017 12:09 PM Electronically Signed By:RABIA Azevedo [facility] Progress Note CM Note CM Note Notes: Chart reviewed. Patient elects to go home with hospice as soon as possible. Patient has large supportive family presence in her room. Referral to [facility] as her wish is to return home and then go to live with her mother in her final stages. They would like to get home today if possible. Awaiting return call from hospice CM to follow. Date Signed: 08/19/2017 12:28 PM Electronically Signed By:Lelo White RN [facility] CM Progress Note CM Note CM Note Notes: Patient accepted to hospice, She will dc with family today. CM available should any other needs arise. Date Signed: 08/19/2017 02:24 PM Electronically Signed By:Lelo White RN Case Management Discharge Plan Note Case Management Discharge Discharge Order Complete? Answers: Yes Patient to Obtain Answers: via Family Medications Transportation Arranged Answers: Family/Friends Faxed Final Orders Answers: Yes Notes: [facility] Agency/Facility Transfer Answers: Yes Notes: [facility] Report Printed & Faxed to Receiving Agency Family Notified Answers: Yes Discharge Comments Notes: Patient home with home hospice. Date Signed: 08/19/2017 02:26 PM Electronically Signed By:Lelo White RN Intervention Information
== END 2017-08-19 16:00 | disposition home or self-care (01) | DRG 420 ==
LOC: F1N 16:56 → OBSVTOIN 08-11 13:13 → F2N 08-11 21:54 → F1N 08-12 19:45 → F2W 08-16 15:39
PROVIDERS: ADMIT Family Medicine; ATTEND Student in an Organized Health Care Education/Training Program
PROC: B246ZZ4 Ultrasonography of Right and Left Heart, Transesophageal (ICD-10-PCS; principal; 2017-08-15)
PROC: 0WJG4ZZ Inspection of Peritoneal Cavity, Percutaneous Endoscopic Approach (ICD-10-PCS; 2017-08-18)
DX: C78.7 Secondary malignant neoplasm of liver and intrahepatic bile duct (principal); J96.01 Acute respiratory failure with hypoxia; J98.6 Disorders of diaphragm; C50.911 Malignant neoplasm of unspecified site of right female breast; C79.51 Secondary malignant neoplasm of bone; J70.1 Chronic and other pulmonary manifestations due to radiation; I31.3 Pericardial effusion (noninflammatory); I47.2 Ventricular tachycardia; E87.2 Acidosis; Z53.09 Procedure and treatment not carried out because of other contraindication; J42 Unspecified chronic bronchitis; D72.829 Elevated white blood cell count, unspecified; I16.0 Hypertensive urgency; W88.1XXS Exposure to radioactive isotopes, sequela; Z98.82 Breast implant status; Z90.13 Acquired absence of bilateral breasts and nipples; Z87.442 Personal history of urinary calculi; Z79.51 Long term (current) use of inhaled steroids
CPT/HCPCS: 96374; G0378; J0360; J0690; J0696; J1100; J1170; J1642; J1650; J2270; J2310; J2370; J2405; J2550; J2704; J2785; J2930; J3010; J7512; J7613; J8521; Q9967